=== PATIENT | male | born 1960 | race Caucasian/White ===

== ENCOUNTER 2017-11-17 08:32 | Emergency (ER) | payer OTHER ==
[~2017-11-17] VITALS: Ht 172.7 cm; Wt 122.5 kg
[~2017-11-17 08:32] MED LIST: ACET500 PO; ALBU90OI6 INH; ASCO500 PO; AZIT250 PO; Advair Hfa 230-12 GM; B Complex #11 EACH PO; BENZ1; BENZ1 PO; Benztropine Mesy1 MG; CLIN300 PO; CLON.5; CLON.5 PO; CLON1 PO; DIPH50 PO; DIVA250EC PO; DIVA250ER PO; DIVA500EC PO; DIVA500ER PO; DOCU100 PO; DONE10 PO; Desyrel50 MG PO; ENAL2.5 PO; FISH OIL + D31 EACH PO; FURO40; FURO40 PO; GUAI600T33 PO; HALO5; HALO5 PO; Haldol 5 mg Tab5 MG GT; IBUP600 PO; IBUP800; IBUP800 PO; LAVAP17G PO; LISI5; LISI5 PO; LITH300CA; LORPSEER24; MAGOXI400 PO; METF500; METF500 PO; MULVITMIND PO; MULVITMINF PO; NAPR500 PO; OLAN5 PO; OXYB5 PO; PERP8 PO; POLY17UD PO; POTCHL10ER; POTCHL10ER PO; PSYL5.85P PO; Prinivil5 MG PO; RISP1 PO; RISP3 PO; RISP4 PO; SENN187 PO; SERT100; SILD50TA; SIMV40 PO; SIMV80 PO; TOCO1000 PO; TOPI100; TRAZ100 PO; TRAZ50; VITAMIN D32000 UNI1 PO; VITS; WARF1 PO; WARF10 PO; WARF4 PO
[2017-11-17] MEDS ORDERED: GLIM2 PO (08:57)
[2017-11-17] MEDS ORDERED: BUDE6HFA INH (08:58)
[2017-11-17] MEDS ORDERED: CHLO25A PO (08:59)
[2017-11-17] MEDS ORDERED: PALI6TA (09:00)
[2017-11-17] MEDS ORDERED: Augmentin 875-1 EACH PO (09:05)
== END 2017-11-17 09:42 | disposition home or self-care (01) ==
LOC: ER 08:32
DX: S01.451A Open bite of right cheek and temporomandibular area, initial encounter (principal); W54.0XXA Bitten by dog, initial encounter; Z88.2 Allergy status to sulfonamides; Z88.8 Allergy status to other drugs, medicaments and biological substances; Z79.899 Other long term (current) drug therapy; Z79.84 Long term (current) use of oral hypoglycemic drugs; I50.9 Heart failure, unspecified; Z87.01 Personal history of pneumonia (recurrent); E11.9 Type 2 diabetes mellitus without complications; F25.9 Schizoaffective disorder, unspecified; F03.90 Unspecified dementia, unspecified severity, without behavioral disturbance, psychotic disturbance, mood disturbance, and anxiety; F17.200 Nicotine dependence, unspecified, uncomplicated
CPT/HCPCS: 90714; 96372; 99283

== ENCOUNTER 2020-12-22 11:56 | Inpatient (IN) | payer OTHER ==
[~2020-12-22] VITALS: Ht 182.9 cm; Wt 155.0 kg
[~2020-12-22 11:56] MED LIST changes: +Augmentin 875-1 EACH PO; -B Complex #11 EACH PO; -Benztropine Mesy1 MG; +Benztropine Mesy1 MG PO; +CHLO25A PO; -FISH OIL + D31 EACH PO; +FISH OIL 1,2001 EAC1 PO; +GLIM2 PO; -LORPSEER24; +PALI6TA; +SYMBICORT 160-4.6 GM INH; +Vitamin B Comple1 EA PO; +[UNRECOGNIZED DRUG - OTHER] PO
[2020-12-22 12:27] LABS: PCO2 Arterial 37.6 mmHg (35-45); PO2 Arterial 163 mmHg (80-100); pH Blood Arterial 7.42 (7.35-7.45)
[2020-12-22 12:59] LABS: BASOPHILS ABSOLUTE AUTO 0.01 K/mm3 (0.00-0.23); BASOPHILS PERCENT AUTO 0 % (0-2); EOSINOPHILS ABSOLUTE AUTO 0.01 K/mm3 (0.00-0.68); EOSINOPHILS PERCENT AUTO 0 % (0-6); Hematocrit 39.9 % (37.0-53.0); Hemoglobin 12.7 g/dL (13.5-17.5); IMMATURE GRAN ABSOLUTE AUTO 0.04 K/mm3 (0.00-0.10); IMMATURE GRAN PERCENT AUTO 1 % (0-1); LYMPHOCYTES ABSOLUTE AUTO 0.48 K/mm3 (0.84-5.20); LYMPHOCYTES PERCENT AUTO 7 % (21-46); MONOCYTES ABSOLUTE AUTO 0.39 K/mm3 (0.16-1.47); MONOCYTES PERCENT AUTO 6 % (4-13); Mean Corpuscular HGB 28.5 pg (26.0-34.0); Mean Corpuscular HGB Conc 31.8 g/dL (31.5-36.5); Mean Corpuscular Volume 90 fL (80-100); NEUTROPHILS ABSOLUTE AUTO 5.71 K/mm3 (1.96-9.15); NEUTROPHILS PERCENT AUTO 86 % (41-73); RDW Coefficient Variation 15.4 % (11.7-14.2); RDW Standard Deviation 51.2 fL (35.1-46.3); Red Blood Cell Count 4.46 M/mm3 (4.30-5.90); White Blood Cell Count 6.64 K/mm3 (4.00-11.30)
[2020-12-22 13:03] LABS: Alanine Aminotransfer (ALT/SGP 50 U/L (12-78); Albumin, Blood 2.4 g/dL (3.4-5.0); Albumin/Globulin Ratio 0.5 (0.8-1.8); Alk Phos 55 U/L (50-136); Anion Gap 6 mmol/L (6-16); Aspartate Aminotrans (AST/SGOT 68 U/L (12-37); Bilirubin, Total 0.4 mg/dL (0.1-1.0); Blood Urea Nitrogen 25 mg/dL (8-24); Bun/Creatinine Ratio 22.7 (12.0-20.0); CO2, Blood 27 mmol/L (21-32); Calcium, Blood 8.2 mg/dL (8.5-10.1); Chloride, Blood 102 mmol/L (98-108); Globulin, Blood 4.4 g/dL (2.2-4.0); Glomerular Filtration Rate >60 (60-); Glucose, Blood 152 mg/dL (70-99); Magnesium, Blood 2.3 mg/dL (1.6-2.4); Potassium, Blood 4.4 mmol/L (3.5-5.5); Sodium, Blood 135 mmol/L (136-145); Total Protein, Blood 6.8 g/dL (6.4-8.2); Troponin I <0.015 ng/mL (0.000-0.040)
[2020-12-22 13:47] LABS: Mean Platelet Volume 9.1 fL (9.1-12.4); Platelet Count 176 K/mm3 (150-400)
[2020-12-22 17:07] LABS: International Normalized Ratio 1.11; Prothrombin Time Results 11.9 Sec (9.7-11.5)
--- NOTE | 2020-12-22 20:10 | NUR ---
THIS RN CONTACTED PT MOTHER, JUAN AUSTIN AT 1999. I GAVE UPDATE ON THE PT'S CONDITION. PT'S MOTHER STATED THAT SHE IS THE COURT APPOINTED DECISION MAKER WHEN THIS RN ASKED IF CODE STATUS HAS LIDA DISCUSSED IN THE PAST. PT'S MOTHER STATED THAT SHE WOULD LIKE HER SON TO BE FULL CODE STATUS. STATUS UPDATE WAS WITNESSED WITH GOLDEN CROCKETT. PT'S MOTHER ALSO STATED THAT THE COURT DOCUMENTS SHOULD BE ON FILE AND IF NOT ON FILE, SHE WOULD DELIVER THEM TO THE HOSPITAL.
--- NOTE | 2020-12-22 20:15 | NUR ---
SHIFT SUMMARY PT ARRIVED TO UNIT AT 1549 VIA HOSPITAL BED AND ON BIPAP AT 60%. PT IS A/O X2 AND IS OBTUNDED. ORAL MEDICATIONS HELD DUE TO PT NOT ABLE TO STAY AWAKE WHEN ROUSED. VSS SINCE ARRIVAL TO UNIT WITH O2 SATS > 96 ON BIPAP AT 60%.
[2020-12-22 23:21] LABS: Source, Urine Clean Catch
[2020-12-22 23:24] LABS: Bilirubin, Urine Neg (Neg); Blood, Urine Neg (Neg); Glucose Qualitative, Urine Neg (Neg); Ketones, Urine Neg (Neg); Leukocyte Esterase, Urine Neg (Neg); Nitrite, Urine Neg (Neg); Protein, Urine 1+ (Neg); Specific Gravity, Urine 1.015 (1.003-1.022); Urobilinogen, Urine NORM (Normal)
[2020-12-22 23:27] LABS: Appearance, Urine Clear (Clear); Color, Urine Yellow (P-Yellow)
[2020-12-23 03:50] LABS: BASOPHILS ABSOLUTE AUTO 0.01 K/mm3 (0.00-0.23); BASOPHILS PERCENT AUTO 0 % (0-2); EOSINOPHILS PERCENT AUTO 0 % (0-6); Hematocrit 36.8 % (37.0-53.0); Hemoglobin 11.6 g/dL (13.5-17.5); IMMATURE GRAN ABSOLUTE AUTO 0.04 K/mm3 (0.00-0.10); IMMATURE GRAN PERCENT AUTO 1 % (0-1); LYMPHOCYTES ABSOLUTE AUTO 0.55 K/mm3 (0.84-5.20); LYMPHOCYTES PERCENT AUTO 8 % (21-46); MONOCYTES ABSOLUTE AUTO 0.32 K/mm3 (0.16-1.47); MONOCYTES PERCENT AUTO 4 % (4-13); Mean Corpuscular HGB 28.4 pg (26.0-34.0); Mean Corpuscular HGB Conc 31.5 g/dL (31.5-36.5); Mean Corpuscular Volume 90 fL (80-100); Mean Platelet Volume 9.3 fL (9.1-12.4); NEUTROPHILS ABSOLUTE AUTO 6.31 K/mm3 (1.96-9.15); NEUTROPHILS PERCENT AUTO 87 % (41-73); Platelet Count 144 K/mm3 (150-400); RDW Coefficient Variation 15.4 % (11.7-14.2); RDW Standard Deviation 51.2 fL (35.1-46.3); Red Blood Cell Count 4.09 M/mm3 (4.30-5.90); White Blood Cell Count 7.23 K/mm3 (4.00-11.30)
[2020-12-23 04:08] LABS: Alanine Aminotransfer (ALT/SGP 47 U/L (12-78); Albumin, Blood 1.9 g/dL (3.4-5.0); Albumin/Globulin Ratio 0.5 (0.8-1.8); Alk Phos 48 U/L (50-136); Anion Gap 7 mmol/L (6-16); Aspartate Aminotrans (AST/SGOT 60 U/L (12-37); Bilirubin, Total 0.3 mg/dL (0.1-1.0); Blood Urea Nitrogen 23 mg/dL (8-24); Bun/Creatinine Ratio 27.6 (12.0-20.0); CO2, Blood 27 mmol/L (21-32); Calcium, Blood 8.5 mg/dL (8.5-10.1); Chloride, Blood 103 mmol/L (98-108); Creatinine, Blood 0.83 mg/dL (0.60-1.20); Globulin, Blood 4.2 g/dL (2.2-4.0); Glomerular Filtration Rate >60 (60-); Glucose, Blood 228 mg/dL (70-99); Magnesium, Blood 2.6 mg/dL (1.6-2.4); Potassium, Blood 4.7 mmol/L (3.5-5.5); Sodium, Blood 137 mmol/L (136-145); Total Protein, Blood 6.1 g/dL (6.4-8.2); Troponin I <0.015 ng/mL (0.000-0.040)
--- NOTE | 2020-12-23 05:56 | NUR ---
HAND MOUNTER SUMMARY PT IS AXO X3. PT WAS VERY OBTUNDED AT THE START OF SHIFT UNABLE TO STAY AWAKE LONG ENOUGH TO TAKE ANY PO MEDICATIONS. PT'S MENTATION HAS IMPROVED THROUGHOUT THE SHIFT. PTHAS MAINTAINED O2 SATS >92% ON BIPAP W 40% FIO2. PT WAS FREQUENTLY INCONTINENT SO ORDER FOR A ARMANDO CATHETER WAS RECIEVED AND PLACED, 1L URINE IMMEDIATELY DRAINED FROM CATHETER AFTER PLACEMENT. PT HAS TUNNELING STAGE 3 PRESSURE ULCER ON COCCYX SO MEPILEX WAS PLACED AND PIC IS IN THE CHART. PT HAS SKIN BREAKDOWN UNDER SKIN FOLDS SO BARRIER CREAM WAS APPLIED AND PICS IN THE CHART. HEPARIN GTT RUNNING ALL SHIFT UNINTERUPTED. WILL REPORT TO ONCOMING RN.
--- NOTE | 2020-12-23 18:40 | NUR ---
shift summary: ASSUMED CARE OF PATIENT ON 12/23/2020 AT 0710. PATIENT WAS SLEEPY, BUT WAS ABLE TO STAY AWAKE ANSWER QUESTIONS, WAS ON BIPAP AT 16/140 70L AT 40%, PATIENT WAS ABLE TO TOLERATE AIRVO FOR BMEALS AND TOLERATED FOR BREAKS, LONGEST BREAK WAS ROUGHLY 50 MINUTES WHERE SAT'S WERE >92 SPO2. PATIENT DENIES CHEST PAIN, DENIED TO BE TURNED DUE TO ALREADY BEING COMFORTABLE, WAS ABLE TO TO DO SLIGHT TURNS Q2 WITH PILLOWS, AND AT THE END OF SHIFT COMPLETELY TURN AND VISUAL COVERED COCCYX. AND CLEAN PERIAREA. HEPARIN WAS INCREASED TO 17U/KG/HR BE THE END OF SHIFT STARTING AT 15 U/KG/HR. ANOTHER IV ESTABLISHED FOR REMDESIVIR WAS PLACED BY BERNA CROCKETT IN THE RIGHT FOREARM. FLUSHES AND INFUSES WELL PATIENT DENIES DISCOMFORT WITH IV. PATIENT DOES HAVE EPISODES OF BILATERAL UPPER EXTREMITY TREMORS. WORSE WITH FOCUSING FOR EATING. DENIES WORSENING. NO EDEMA ON PRESENTATION. ARMANDO FLOWING WELL TO GRAVITY, LARGE INPUT OF FLUIDS WITH A LARGE OUTPUT OF FLUIDS WELL. BED ALARM ON. USES CALL LIGHT APPROPRIATELY.
--- NOTE | 2020-12-23 18:55 | NUR ---
SHIFT SUMMARY: PATIENT ARRIVED TO PCU AT ~1430 FROM ICU2, SP ANGIOGRAM VIA R RADIAL. SLIGHT BRUISING AT SIGHT. PATIENT IS ON RA, DENIES CHEST OR TENDERNESS WITH REST, DOES ENDORSE CHSET TENDERNESS AT A 3/10 WITH DEEP BREATH AND CERTAIN MOVEMENTS. DR. DANIELSON CONSULTED FROM DR. ANGELES AFTER THIS LOG SORTING SUPERVISOR CALLED DUE TO ELEVEATED TEMP AND WBC. URINALYSIS TYLENOL AND INCENTIVE CECILIA, CBC ORDERED BY PROVIDER. PATIENT USES CALL LIGHT APPROPRIATELY. BOTH IV FLUSH WELL. ABLE TO REPOSITION.
[2020-12-24 04:24] LABS: BASOPHILS ABSOLUTE AUTO 0.02 K/mm3 (0.00-0.23); BASOPHILS PERCENT AUTO 0 % (0-2); EOSINOPHILS PERCENT AUTO 0 % (0-6); Hematocrit 34.8 % (37.0-53.0); Hemoglobin 11.1 g/dL (13.5-17.5); Mean Corpuscular HGB 28.2 pg (26.0-34.0); Mean Corpuscular HGB Conc 31.9 g/dL (31.5-36.5); Mean Corpuscular Volume 88 fL (80-100); Mean Platelet Volume 9.6 fL (9.1-12.4); NRBC ABSOLUTE 0.02 K/mm3 (0.00-0.02); NRBC Auto 0.2 /100 WBC (0.0-0.2); Platelet Count 187 K/mm3 (150-400); RDW Standard Deviation 48.6 fL (35.1-46.3); Red Blood Cell Count 3.94 M/mm3 (4.30-5.90); White Blood Cell Count 8.19 K/mm3 (4.00-11.30)
[2020-12-24 04:26] LABS: IMMATURE GRAN PERCENT AUTO 1 % (0-1); LYMPHOCYTES ABSOLUTE AUTO 0.62 K/mm3 (0.84-5.20); LYMPHOCYTES PERCENT AUTO 8 % (21-46); MONOCYTES ABSOLUTE AUTO 0.46 K/mm3 (0.16-1.47); MONOCYTES PERCENT AUTO 6 % (4-13); NEUTROPHILS ABSOLUTE AUTO 6.99 K/mm3 (1.96-9.15); NEUTROPHILS PERCENT AUTO 85 % (41-73)
[2020-12-24 04:39] LABS: International Normalized Ratio 1.11; Prothrombin Time Results 11.9 Sec (9.7-11.5)
[2020-12-24 04:48] LABS: Alanine Aminotransfer (ALT/SGP 76 U/L (12-78); Albumin, Blood 1.8 g/dL (3.4-5.0); Albumin/Globulin Ratio 0.4 (0.8-1.8); Alk Phos 50 U/L (50-136); Anion Gap 5 mmol/L (6-16); Aspartate Aminotrans (AST/SGOT 53 U/L (12-37); Bilirubin, Total 0.2 mg/dL (0.1-1.0); Blood Urea Nitrogen 18 mg/dL (8-24); Bun/Creatinine Ratio 28.1 (12.0-20.0); CO2, Blood 27 mmol/L (21-32); Chloride, Blood 103 mmol/L (98-108); Creatinine, Blood 0.64 mg/dL (0.60-1.20); Globulin, Blood 4.2 g/dL (2.2-4.0); Glomerular Filtration Rate >60 (60-); Glucose, Blood 284 mg/dL (70-99); Magnesium, Blood 2.7 mg/dL (1.6-2.4); Potassium, Blood 5.1 mmol/L (3.5-5.5); Sodium, Blood 135 mmol/L (136-145); Troponin I <0.015 ng/mL (0.000-0.040)
--- NOTE | 2020-12-24 18:38 | NUR ---
SHIFT SUMMARY PT ALERT AND ORIENTED X 4 THROUGHOUT SHIFT. SBP REMAINED IN 150'S; 10 MG HYDRALAZINE GIVEN AT 1530 PER EMAR ORDERS. UPON REASSESSMENT SBP REMAINED IN 150'S. WILL COMMUNICATE TO ONCOMING NURSE OF BP WELL Q6 HYDRALAZINE ORDER FOR SBP GREATER THAN 150. PATIENT IS NOW ON 8 L O2 VIA NASAL CANNULA AND SPO2 REMAINS AT 98%. PATIENT DENIED NAUSEA/VOMMITING DURING SHIFT. PATIENT DENIED CHEST PAIN OR PRESSURE. POWERGLIDE IN RIGHT ARM IS INFUSING HEPARIN DRIP PER ORDERS. PATIENT COMPLAINED OF INABILITY TO HAVE A BM SINCE ADMITTANCE. THIS NURSE GAVE SUPPOSITORY PER ORDER AND PATIENT GOT UP TO BEDSIDE COMMODE A SBA. NO BM AT THIS TIME. MEPILEX DRESSING ON COCCYX WOUND IS DRY AND INTACT. ARMANDO CATHETER IS PATENT AND DRAINING APPROPRIATELY. NO OTHER ACUTE CHANGES NOTED. WILL CONTINUE TO MONITOR.
[2020-12-25 03:31] LABS: BASOPHILS ABSOLUTE AUTO 0.04 K/mm3 (0.00-0.23); BASOPHILS PERCENT AUTO 1 % (0-2); EOSINOPHILS PERCENT AUTO 0 % (0-6); Hematocrit 35.3 % (37.0-53.0); Hemoglobin 11.4 g/dL (13.5-17.5); Mean Corpuscular HGB 28.7 pg (26.0-34.0); Mean Corpuscular HGB Conc 32.3 g/dL (31.5-36.5); Mean Corpuscular Volume 89 fL (80-100); Mean Platelet Volume 9.5 fL (9.1-12.4); NRBC ABSOLUTE 0.04 K/mm3 (0.00-0.02); NRBC Auto 0.5 /100 WBC (0.0-0.2); Platelet Count 242 K/mm3 (150-400); RDW Standard Deviation 49.1 fL (35.1-46.3); Red Blood Cell Count 3.97 M/mm3 (4.30-5.90); White Blood Cell Count 7.66 K/mm3 (4.00-11.30)
[2020-12-25 03:32] LABS: IMMATURE GRAN ABSOLUTE AUTO 0.29 K/mm3 (0.00-0.10); IMMATURE GRAN PERCENT AUTO 4 % (0-1); LYMPHOCYTES ABSOLUTE AUTO 0.98 K/mm3 (0.84-5.20); LYMPHOCYTES PERCENT AUTO 13 % (21-46); MONOCYTES ABSOLUTE AUTO 0.55 K/mm3 (0.16-1.47); MONOCYTES PERCENT AUTO 7 % (4-13); NEUTROPHILS PERCENT AUTO 76 % (41-73)
[2020-12-25 03:46] LABS: International Normalized Ratio 1.15; Prothrombin Time Results 12.3 Sec (9.7-11.5)
[2020-12-25 03:50] LABS: Anion Gap 3 mmol/L (6-16); Blood Urea Nitrogen 22 mg/dL (8-24); Bun/Creatinine Ratio 32.7 (12.0-20.0); CO2, Blood 30 mmol/L (21-32); Calcium, Blood 8.8 mg/dL (8.5-10.1); Chloride, Blood 103 mmol/L (98-108); Creatinine, Blood 0.67 mg/dL (0.60-1.20); Glomerular Filtration Rate >60 (60-); Glucose, Blood 408 mg/dL (70-99); Magnesium, Blood 2.3 mg/dL (1.6-2.4); Potassium, Blood 5.6 mmol/L (3.5-5.5); Sodium, Blood 136 mmol/L (136-145); Troponin I <0.015 ng/mL (0.000-0.040)
--- NOTE | 2020-12-25 06:03 | NUR ---
SUMMARY NO ACUTE CHANGES NOTED THROUGH THE NIGHT. PT IS CURRENTLY ON 6 L 02 VIA NC. SPO2 >93%. PT WORE A CPAP TO BED & TOLERATED WITH NO PROBLEMS. TOLERATING PO INTAKE. Q2 TURNS PROVIDED. DB&C ENC. HEP GTT INFUSING PER EMAR @ 19.5 UNITS/KG. CALL LIGHT IN REACH, WCTM & REPORT TO DAY RN
--- NOTE | 2020-12-25 09:35 | NUR ---
SALINE LOCKED. HEPARIN DRIP STOPPED PER PHARMACY.
--- NOTE | 2020-12-25 13:43 | NUR ---
UPDATE PHYSICIAN NOTIFIED T/O SHIFT OF PT'S HIGH CBG LEVELS. ORDERS FOR HUMULIN R, SEE EMAR. ORDERS TO RE-CHECK CBG IN 1 HR
[2020-12-25 14:39] LABS: Alanine Aminotransfer (ALT/SGP 71 U/L (12-78); Albumin, Blood 1.9 g/dL (3.4-5.0); Albumin/Globulin Ratio 0.4 (0.8-1.8); Alk Phos 61 U/L (50-136); Anion Gap 6 mmol/L (6-16); Aspartate Aminotrans (AST/SGOT 33 U/L (12-37); Bilirubin, Total 0.4 mg/dL (0.1-1.0); Blood Urea Nitrogen 22 mg/dL (8-24); Bun/Creatinine Ratio 30.5 (12.0-20.0); CO2, Blood 28 mmol/L (21-32); Calcium, Blood 8.5 mg/dL (8.5-10.1); Chloride, Blood 100 mmol/L (98-108); Creatinine, Blood 0.72 mg/dL (0.60-1.20); Globulin, Blood 4.5 g/dL (2.2-4.0); Glomerular Filtration Rate >60 (60-); Glucose, Blood 431 mg/dL (70-99); Potassium, Blood 5.4 mmol/L (3.5-5.5); Sodium, Blood 134 mmol/L (136-145); Total Protein, Blood 6.4 g/dL (6.4-8.2)
--- NOTE | 2020-12-25 15:12 | NUR ---
UPDATE PHYSICIAN NOTIFIED OF PT'S HIGH CBG. ORDERS FOR 10 UNITS OF HUMULIN R ORDERED.
--- NOTE | 2020-12-25 16:37 | NUR ---
SHIFT SUMMARY PT ALERT AND ORIENTED. SLOW TO RESPOND. PT SBA TO COMMODE. OXYGEN SATURATION MAINTAINED ABOVE 92% ON 9 L OF OXYGEN VIA NC. HR STABLE. NO LONGER ON TELEMETRY PER MD ORDER. PT ABLE TO TURN SELF AND ASSIST IN TURNS IN BED. NO CP OR PRESSURE REPORTED. PT HAS HIGH CBG READINGS T/O SHIFT. PHYSICIAN AWARE AND ORDERS PROVIDED. WILL RE-CHECK CBG Q 1 HR WHILE ABOVE 350 AND INFORM PHYSICIAN. PT ASSISTED IN CALLING MOTHER AT BEDSIDE. WILL CONT TO MONITOR UNTIL REPORT GIVEN TO NIGHTSHIFT RN
[2020-12-26 05:10] LABS: BASOPHILS ABSOLUTE AUTO 0.04 K/mm3 (0.00-0.23); BASOPHILS PERCENT AUTO 1 % (0-2); EOSINOPHILS PERCENT AUTO 0 % (0-6); Hematocrit 37.1 % (37.0-53.0); Hemoglobin 11.9 g/dL (13.5-17.5); Mean Corpuscular HGB 28.6 pg (26.0-34.0); Mean Corpuscular HGB Conc 32.1 g/dL (31.5-36.5); Mean Corpuscular Volume 89 fL (80-100); Mean Platelet Volume 9.6 fL (9.1-12.4); NRBC ABSOLUTE 0.03 K/mm3 (0.00-0.02); NRBC Auto 0.4 /100 WBC (0.0-0.2); Platelet Count 266 K/mm3 (150-400); RDW Coefficient Variation 14.7 % (11.7-14.2); RDW Standard Deviation 48.3 fL (35.1-46.3); Red Blood Cell Count 4.16 M/mm3 (4.30-5.90); White Blood Cell Count 8.56 K/mm3 (4.00-11.30)
[2020-12-26 05:19] LABS: IMMATURE GRAN ABSOLUTE AUTO 0.42 K/mm3 (0.00-0.10); IMMATURE GRAN PERCENT AUTO 5 % (0-1); LYMPHOCYTES ABSOLUTE AUTO 1.18 K/mm3 (0.84-5.20); LYMPHOCYTES PERCENT AUTO 14 % (21-46); MONOCYTES ABSOLUTE AUTO 0.69 K/mm3 (0.16-1.47); MONOCYTES PERCENT AUTO 8 % (4-13); NEUTROPHILS ABSOLUTE AUTO 6.23 K/mm3 (1.96-9.15); NEUTROPHILS PERCENT AUTO 73 % (41-73)
[2020-12-26 05:27] LABS: International Normalized Ratio 1.27; Prothrombin Time Results 13.5 Sec (9.7-11.5)
[2020-12-26 06:00] LABS: Alanine Aminotransfer (ALT/SGP 67 U/L (12-78); Albumin/Globulin Ratio 0.4 (0.8-1.8); Alk Phos 54 U/L (50-136); Anion Gap 5 mmol/L (6-16); Aspartate Aminotrans (AST/SGOT 30 U/L (12-37); Bilirubin, Total 0.2 mg/dL (0.1-1.0); Blood Urea Nitrogen 23 mg/dL (8-24); Bun/Creatinine Ratio 28.1 (12.0-20.0); CO2, Blood 30 mmol/L (21-32); Calcium, Blood 9.2 mg/dL (8.5-10.1); Chloride, Blood 102 mmol/L (98-108); Creatinine, Blood 0.82 mg/dL (0.60-1.20); Globulin, Blood 4.6 g/dL (2.2-4.0); Glomerular Filtration Rate >60 (60-); Glucose, Blood 326 mg/dL (70-99); Magnesium, Blood 2.2 mg/dL (1.6-2.4); Potassium, Blood 5.1 mmol/L (3.5-5.5); Sodium, Blood 137 mmol/L (136-145); Total Protein, Blood 6.6 g/dL (6.4-8.2); Troponin I <0.015 ng/mL (0.000-0.040)
--- NOTE | 2020-12-26 06:00 | NUR ---
SUMMARY PT IS CURRENTLY ON 10 L O2 VIA NC, SPO2 >92%. PT TOLERATED CPAP THROUGH THE NIGHT WITH NO PROBLEMS. HE IS AWAKE & DRINKING COFFEE THIS AM. DB&C EDUCATION PROVIDED. PT IS COUGHING UP CLEAR SPUTUM. Q2 TURNS PROVIDED. ARMANDO REMAINS PATENT, CLEAR YELLOW URINE NOTED. CALL LIGHT IN REACH
[2020-12-26 06:35] LABS: BASOPHILS PERCENT MAN 0 % (0-2); EOSINOPHILS PERCENT MAN 0 % (0-6); LYMPHOCYTES PERCENT MAN 11 % (21-46)
[2020-12-26 06:38] LABS: BAND PERCENT MAN 1 % (0-8); MONOCYTES ABSOLUTE MAN 0.51 K/mm3 (0.16-1.47); MONOCYTES PERCENT MAN 6 % (4-13); MYELOCYTE ABSOLUTE MAN 0.17 K/mm3 (0.00-0.00); MYELOCYTE PERCENT MAN 2 % (0-0); NEUTROPHILS ABSOLUTE MAN 6.93 K/mm3 (1.96-9.15); SEG NEUTROPHILS PERCENT MAN 80 % (41-73); TOTAL CELLS COUNTED 100
[2020-12-26 06:40] LABS: LYMPHOCYTES ABSOLUTE MAN 0.94 K/mm3 (0.84-5.20)
--- NOTE | 2020-12-26 12:26 | NUR ---
PT WITH COVERS OVER HEAD, UNSURE OF WHERE HE IS. CONFUSED CONVERSATION. PT REORIENTED TO SURROUNDINGS THEN PT VERBALIZES HE IS AWARE OF BEING IN HOSPITAL AND HOPES TO GO HOME TODAY OR TOMORROW- ASKS WHEN THE DR WILL SEE HIM. KLONOPIN GIVEN EARLY AM DOSE HAD BEEN HELD
--- NOTE | 2020-12-26 15:53 | NUR ---
to 345 per bed. report c ken nuno receiving charlie magallon
--- NOTE | 2020-12-26 19:49 | NUR ---
SHIFT SUMMARY: PT XFR FROM PCU-07 THIS SHIFT. PT A&O; CALM AND COOPERATIVE WITH CARE. PT REMAINS ON O2 @ 10L VIA OXYMIZER. ARMANDO IN PLACE; PATENT AND DRAINING. HOME O2 EVAL THIS SHIFT REVEALS O2 NEEDS AT 10L AT ALL TIMES. POSSIBLE DISCHARGE HOME TO [facility] IN NEXT 48 HOURS. REPORT GIVEN TO ONCLONNIE RN.
[2020-12-27 05:28] LABS: BASOPHILS ABSOLUTE AUTO 0.07 K/mm3 (0.00-0.23); BASOPHILS PERCENT AUTO 1 % (0-2); EOSINOPHILS PERCENT AUTO 0 % (0-6); Hematocrit 39.8 % (37.0-53.0); Mean Corpuscular HGB 28.6 pg (26.0-34.0); Mean Corpuscular HGB Conc 32.7 g/dL (31.5-36.5); Mean Corpuscular Volume 88 fL (80-100); Mean Platelet Volume 9.3 fL (9.1-12.4); NRBC ABSOLUTE 0.24 K/mm3 (0.00-0.02); NRBC Auto 2.9 /100 WBC (0.0-0.2); Platelet Count 282 K/mm3 (150-400); RDW Coefficient Variation 14.9 % (11.7-14.2); RDW Standard Deviation 47.7 fL (35.1-46.3); Red Blood Cell Count 4.55 M/mm3 (4.30-5.90); White Blood Cell Count 8.32 K/mm3 (4.00-11.30)
[2020-12-27 05:37] LABS: IMMATURE GRAN ABSOLUTE AUTO 0.72 K/mm3 (0.00-0.10); IMMATURE GRAN PERCENT AUTO 9 % (0-1); LYMPHOCYTES ABSOLUTE AUTO 1.19 K/mm3 (0.84-5.20); LYMPHOCYTES PERCENT AUTO 14 % (21-46); MONOCYTES ABSOLUTE AUTO 0.57 K/mm3 (0.16-1.47); MONOCYTES PERCENT AUTO 7 % (4-13); NEUTROPHILS ABSOLUTE AUTO 5.77 K/mm3 (1.96-9.15); NEUTROPHILS PERCENT AUTO 69 % (41-73)
[2020-12-27 05:45] LABS: International Normalized Ratio 1.31; Prothrombin Time Results 13.9 Sec (9.7-11.5)
[2020-12-27 06:02] LABS: Anion Gap 3 mmol/L (6-16); Blood Urea Nitrogen 24 mg/dL (8-24); Bun/Creatinine Ratio 32.9 (12.0-20.0); CO2, Blood 32 mmol/L (21-32); Calcium, Blood 9.6 mg/dL (8.5-10.1); Chloride, Blood 102 mmol/L (98-108); Creatinine, Blood 0.73 mg/dL (0.60-1.20); Glomerular Filtration Rate >60 (60-); Glucose, Blood 245 mg/dL (70-99); Potassium, Blood 5.5 mmol/L (3.5-5.5); Sodium, Blood 137 mmol/L (136-145)
[2020-12-27 06:06] LABS: BASOPHILS PERCENT MAN 0 % (0-2); EOSINOPHILS PERCENT MAN 0 % (0-6); LYMPHOCYTES ABSOLUTE MAN 0.83 K/mm3 (0.84-5.20); LYMPHOCYTES PERCENT MAN 10 % (21-46); MONOCYTES ABSOLUTE MAN 0.49 K/mm3 (0.16-1.47); MONOCYTES PERCENT MAN 6 % (4-13); MYELOCYTE ABSOLUTE MAN 0.83 K/mm3 (0.00-0.00); MYELOCYTE PERCENT MAN 10 % (0-0); NEUTROPHILS ABSOLUTE MAN 6.15 K/mm3 (1.96-9.15); SEG NEUTROPHILS PERCENT MAN 74 % (41-73); TOTAL CELLS COUNTED 100
--- NOTE | 2020-12-27 07:40 | NUR ---
SHIFT SUMMARY PT REMAINS ON 10L VIA HI DEEPAK NASAL CANNULA. SLEPT WITH CPAP ON LAST NIGHT. NO C/O PAIN OR DISCOMFORT. ARMANDO IN PLACE AND DRAINING. POWERGLIDE IV IN RIGHT AC. VSS. NO ACUTE CHANGES.
[2020-12-27] MEDS ORDERED: ACET325 PO (11:34)
[2020-12-27] MEDS ORDERED: INSULANPEN SC (11:35)
[2020-12-27] MEDS ORDERED: HUMULIN R100 UNIT/1 SC ×2 (11:38→11:40)
[2020-12-27] MEDS ORDERED: XARELTO15 MG PO (11:41)
[2020-12-27] MEDS ORDERED: DECADRON6 M2 PO (11:41)
[2020-12-27] MEDS ORDERED: SENNA LAXATIVE8.6 MG PO (11:41)
== END 2020-12-27 15:41 | disposition home or self-care (01) | DRG 177 ==
LOC: ER 11:56 → PCU 13:35 → MEDS 12-26 16:20 → ENPENDDIS 12-27 10:27 → MEDS 12-27 15:41
PROVIDERS: Internal Medicine; Pharmacist; Student in an Organized Health Care Education/Training Program; ADMIT Family Medicine
PROC: 8E0ZXY6 Isolation (ICD-10-PCS; principal; 2020-12-22)
PROC: 3E0333Z Introduction of Anti-inflammatory into Peripheral Vein, Percutaneous Approach (ICD-10-PCS; 2020-12-22)
PROC: XW033E5 Introduction of Remdesivir Anti-infective into Peripheral Vein, Percutaneous Approach, New Technology Group 5 (ICD-10-PCS; 2020-12-22)
PROC: 5A09457 Assistance with Respiratory Ventilation, 24-96 Consecutive Hours, Continuous Positive Airway Pressure (ICD-10-PCS; 2020-12-22)
DX: U07.1 COVID-19 (principal); J12.82 Pneumonia due to coronavirus disease 2019; J96.01 Acute respiratory failure with hypoxia; I26.99 Other pulmonary embolism without acute cor pulmonale; Z68.44 Body mass index [BMI] 60.0-69.9, adult; Z66 Do not resuscitate; E78.5 Hyperlipidemia, unspecified; I11.0 Hypertensive heart disease with heart failure; R79.89 Other specified abnormal findings of blood chemistry; I50.9 Heart failure, unspecified; E86.0 Dehydration; R94.31 Abnormal electrocardiogram [ECG] [EKG]; F25.9 Schizoaffective disorder, unspecified; E66.01 Morbid (severe) obesity due to excess calories; M54.9 Dorsalgia, unspecified; J44.9 Chronic obstructive pulmonary disease, unspecified; G40.909 Epilepsy, unspecified, not intractable, without status epilepticus; F03.90 Unspecified dementia, unspecified severity, without behavioral disturbance, psychotic disturbance, mood disturbance, and anxiety; G89.29 Other chronic pain; G47.33 Obstructive sleep apnea (adult) (pediatric); F17.210 Nicotine dependence, cigarettes, uncomplicated; Z88.2 Allergy status to sulfonamides; Z88.8 Allergy status to other drugs, medicaments and biological substances; Z86.711 Personal history of pulmonary embolism; Z79.899 Other long term (current) drug therapy; Z79.84 Long term (current) use of oral hypoglycemic drugs
CPT/HCPCS: 36415; 36600; 71260; 80048; 80053; 82803; 82947; 83036; 83605; 83735; 83880; 84145; 84443; 84484; 85025; 85379; 85610; 85730; 86140; 87040; 93005; 93010; 94640; 94660; 94664; 94761; 94762; 96361; 96374; 99285-25; A9270; C1751; J0360; J1100; J1644; J1815; J2930; J7030; Q9967

== ENCOUNTER 2021-01-17 18:40 | Emergency (ER) | payer OTHER ==
[~2021-01-17] VITALS: Ht 172.7 cm; Wt 153.3 kg
[~2021-01-17 18:40] MED LIST changes: +ACET325 PO; +DECADRON6 M2 PO; +HUMULIN R100 UNIT/1 SC; +INSULANPEN SC; +SENNA LAXATIVE8.6 MG PO; +XARELTO15 MG PO
[2021-01-17 19:11] LABS: BASOPHILS ABSOLUTE AUTO 0.02 K/mm3 (0.00-0.23); BASOPHILS PERCENT AUTO 0 % (0-2); EOSINOPHILS PERCENT AUTO 2 % (0-6); Hematocrit 30.5 % (37.0-53.0); Hemoglobin 9.4 g/dL (13.5-17.5); IMMATURE GRAN ABSOLUTE AUTO 0.05 K/mm3 (0.00-0.10); IMMATURE GRAN PERCENT AUTO 1 % (0-1); LYMPHOCYTES PERCENT AUTO 27 % (21-46); MONOCYTES ABSOLUTE AUTO 0.61 K/mm3 (0.16-1.47); MONOCYTES PERCENT AUTO 13 % (4-13); Mean Corpuscular HGB 29.2 pg (26.0-34.0); Mean Corpuscular HGB Conc 30.8 g/dL (31.5-36.5); Mean Corpuscular Volume 95 fL (80-100); Mean Platelet Volume 8.5 fL (9.1-12.4); NEUTROPHILS PERCENT AUTO 57 % (41-73); NRBC ABSOLUTE 0.06 K/mm3 (0.00-0.02); NRBC Auto 1.3 /100 WBC (0.0-0.2); Platelet Count 334 K/mm3 (150-400); RDW Standard Deviation 57.2 fL (35.1-46.3); Red Blood Cell Count 3.22 M/mm3 (4.30-5.90); White Blood Cell Count 4.78 K/mm3 (4.00-11.30)
[2021-01-17 19:28] LABS: Alanine Aminotransfer (ALT/SGP 39 U/L (12-78); Albumin, Blood 2.3 g/dL (3.4-5.0); Albumin/Globulin Ratio 0.6 (0.8-1.8); Alk Phos 81 U/L (50-136); Anion Gap 4 mmol/L (6-16); Aspartate Aminotrans (AST/SGOT 52 U/L (12-37); Bilirubin, Total 0.2 mg/dL (0.1-1.0); Blood Urea Nitrogen 13 mg/dL (8-24); Bun/Creatinine Ratio 14.5 (12.0-20.0); CO2, Blood 32 mmol/L (21-32); Calcium, Blood 8.5 mg/dL (8.5-10.1); Chloride, Blood 100 mmol/L (98-108); Globulin, Blood 3.8 g/dL (2.2-4.0); Glomerular Filtration Rate >60 (60-); Glucose, Blood 102 mg/dL (70-99); Potassium, Blood 4.7 mmol/L (3.5-5.5); Sodium, Blood 136 mmol/L (136-145); Total Protein, Blood 6.1 g/dL (6.4-8.2)
== END 2021-01-17 21:00 | disposition home or self-care (01) ==
LOC: ER 18:40
PROVIDERS: Emergency Medicine
DX: R11.2 Nausea with vomiting, unspecified (principal); U07.1 COVID-19; G20 Parkinson's disease; I50.9 Heart failure, unspecified; E11.9 Type 2 diabetes mellitus without complications; G47.33 Obstructive sleep apnea (adult) (pediatric); F17.200 Nicotine dependence, unspecified, uncomplicated; Z88.2 Allergy status to sulfonamides; Z91.048 Other nonmedicinal substance allergy status; Z79.899 Other long term (current) drug therapy; Z79.4 Long term (current) use of insulin; Z86.711 Personal history of pulmonary embolism
CPT/HCPCS: 36415; 71045; 80053; 85025; 99285-25; A9270

== ENCOUNTER 2021-01-21 11:04 | Emergency (ER) | payer OTHER ==
[~2021-01-21] VITALS: Ht 172.7 cm; Wt 153.3 kg
[~2021-01-21 11:04] MED LIST changes: -XARELTO15 MG PO; +XARELTO20 MG PO
== END 2021-01-21 17:55 | disposition home or self-care (01) ==
LOC: ER 11:04
DX: L89.154 Pressure ulcer of sacral region, stage 4 (principal); E11.9 Type 2 diabetes mellitus without complications; G47.30 Sleep apnea, unspecified; Z86.711 Personal history of pulmonary embolism; F03.90 Unspecified dementia, unspecified severity, without behavioral disturbance, psychotic disturbance, mood disturbance, and anxiety; Z88.2 Allergy status to sulfonamides; Z91.048 Other nonmedicinal substance allergy status; Z79.4 Long term (current) use of insulin; Z79.899 Other long term (current) drug therapy
CPT/HCPCS: 99283-25

== ENCOUNTER 2021-01-25 00:04 | Inpatient (IN) | payer OTHER ==
[~2021-01-25] VITALS: Ht 172.7 cm; Wt 154.4 kg
[2021-01-25 00:38] LABS: BASOPHILS ABSOLUTE AUTO 0.03 K/mm3 (0.00-0.23); BASOPHILS PERCENT AUTO 0 % (0-2); EOSINOPHILS PERCENT AUTO 0 % (0-6); Hematocrit 30.8 % (37.0-53.0); Hemoglobin 9.3 g/dL (13.5-17.5); IMMATURE GRAN ABSOLUTE AUTO 0.08 K/mm3 (0.00-0.10); IMMATURE GRAN PERCENT AUTO 1 % (0-1); LYMPHOCYTES ABSOLUTE AUTO 1.03 K/mm3 (0.84-5.20); LYMPHOCYTES PERCENT AUTO 15 % (21-46); MONOCYTES ABSOLUTE AUTO 0.75 K/mm3 (0.16-1.47); MONOCYTES PERCENT AUTO 11 % (4-13); Mean Corpuscular HGB 28.4 pg (26.0-34.0); Mean Corpuscular HGB Conc 30.2 g/dL (31.5-36.5); Mean Corpuscular Volume 94 fL (80-100); Mean Platelet Volume 8.7 fL (9.1-12.4); NEUTROPHILS ABSOLUTE AUTO 5.01 K/mm3 (1.96-9.15); NEUTROPHILS PERCENT AUTO 73 % (41-73); NRBC ABSOLUTE 0.04 K/mm3 (0.00-0.02); NRBC Auto 0.6 /100 WBC (0.0-0.2); Platelet Count 388 K/mm3 (150-400); RDW Coefficient Variation 17.2 % (11.7-14.2); RDW Standard Deviation 59.5 fL (35.1-46.3); Red Blood Cell Count 3.27 M/mm3 (4.30-5.90)
[2021-01-25 01:01] LABS: Magnesium, Blood 2.3 mg/dL (1.6-2.4); Troponin I 0.119 ng/mL (0.000-0.040)
[2021-01-25 01:06] LABS: Alanine Aminotransfer (ALT/SGP 120 U/L (12-78); Albumin/Globulin Ratio 0.4 (0.8-1.8); Alk Phos 70 U/L (50-136); Anion Gap 4 mmol/L (6-16); Aspartate Aminotrans (AST/SGOT 86 U/L (12-37); Bilirubin, Total 0.3 mg/dL (0.1-1.0); Blood Urea Nitrogen 24 mg/dL (8-24); Bun/Creatinine Ratio 23.1 (12.0-20.0); CO2, Blood 28 mmol/L (21-32); Calcium, Blood 9.1 mg/dL (8.5-10.1); Chloride, Blood 103 mmol/L (98-108); Creatinine, Blood 1.04 mg/dL (0.60-1.20); Globulin, Blood 4.5 g/dL (2.2-4.0); Glomerular Filtration Rate >60 (60-); Glucose, Blood 122 mg/dL (70-99); Potassium, Blood 6.3 mmol/L (3.5-5.5); Sodium, Blood 135 mmol/L (136-145); Total Protein, Blood 6.5 g/dL (6.4-8.2)
[2021-01-25 02:02] LABS: International Normalized Ratio 1.21; Prothrombin Time Results 12.9 Sec (9.7-11.5)
[2021-01-25 02:28] LABS: SARS-Cov-2 (COVID-19) PCR, MMC POSITIVE (NEGATIVE)
--- NOTE | 2021-01-25 06:55 | NUR ---
PT ARRIVED FROM ED AT 0641. PT AWAKE ALERT AND ORIENT TO 4. ON NON-REBREATHER @ 8L. SATS 99%. SHAKES R/T PARKINSON'S DISEASE. DENIES PAIN. LUNGS CLEAR THROUGHOUT. ABLE TO MAKE NEEDS KNOWN, CALL LIGHT WITHIN REACH. VS STABLE.
[2021-01-25 08:41] LABS: Hematocrit 29.5 % (37.0-53.0); Hemoglobin 8.8 g/dL (13.5-17.5); Mean Corpuscular HGB 28.7 pg (26.0-34.0); Mean Corpuscular HGB Conc 29.8 g/dL (31.5-36.5); Mean Corpuscular Volume 96 fL (80-100); Mean Platelet Volume 8.7 fL (9.1-12.4); NRBC ABSOLUTE 0.04 K/mm3 (0.00-0.02); NRBC Auto 0.7 /100 WBC (0.0-0.2); Platelet Count 354 K/mm3 (150-400); RDW Coefficient Variation 17.4 % (11.7-14.2); RDW Standard Deviation 60.3 fL (35.1-46.3); Red Blood Cell Count 3.07 M/mm3 (4.30-5.90); White Blood Cell Count 6.06 K/mm3 (4.00-11.30)
[2021-01-25 09:03] LABS: Alanine Aminotransfer (ALT/SGP 105 U/L (12-78); Albumin, Blood 1.9 g/dL (3.4-5.0); Albumin/Globulin Ratio 0.5 (0.8-1.8); Alk Phos 64 U/L (50-136); Anion Gap 4 mmol/L (6-16); Aspartate Aminotrans (AST/SGOT 63 U/L (12-37); Bilirubin, Total 0.3 mg/dL (0.1-1.0); Blood Urea Nitrogen 22 mg/dL (8-24); Bun/Creatinine Ratio 23.3 (12.0-20.0); CO2, Blood 31 mmol/L (21-32); Calcium, Blood 8.8 mg/dL (8.5-10.1); Chloride, Blood 105 mmol/L (98-108); Creatinine, Blood 0.94 mg/dL (0.60-1.20); Globulin, Blood 4.2 g/dL (2.2-4.0); Glomerular Filtration Rate >60 (60-); Glucose, Blood 73 mg/dL (70-99); Potassium, Blood 5.3 mmol/L (3.5-5.5); Sodium, Blood 140 mmol/L (136-145); Total Protein, Blood 6.1 g/dL (6.4-8.2)
[2021-01-25 09:33] LABS: BAND PERCENT MAN 1 % (0-8); BASOPHILS PERCENT MAN 0 % (0-2); EOSINOPHILS PERCENT MAN 0 % (0-6); LYMPHOCYTES ABSOLUTE MAN 1.03 K/mm3 (0.84-5.20); LYMPHOCYTES PERCENT MAN 17 % (21-46); MONOCYTES ABSOLUTE MAN 0.66 K/mm3 (0.16-1.47); MONOCYTES PERCENT MAN 11 % (4-13); NEUTROPHILS ABSOLUTE MAN 4.36 K/mm3 (1.96-9.15); SEG NEUTROPHILS PERCENT MAN 71 % (41-73); TOTAL CELLS COUNTED 100
--- NOTE | 2021-01-25 14:20 | NUR ---
echocardiogram complete
--- NOTE | 2021-01-25 16:11 | NUR ---
Introduction: PT refered by nursing staff and family(mother). Assessment: PT presented lying in bed labored breathing and difficulty speaking. I notified PT who I was. I asked PT if he believed in God, PT replied, "Yes". PT was having extreme difficulty speaking and I was having trouble understanding. Intervention: PT offered devotional reading from [employer], in order to allow PT to listen without the need for communication. PT was offered prayer. Outcome: PT received devotional reading and prayer. Follow-Up: As needed or requested.
--- NOTE | 2021-01-26 04:55 | NUR ---
SHIFT SUMMARY PT ADMITTED FOR COVID 19+. AAOX3. CONFUSED. ON 10L HIGHFLOW. NO DISTRESS NOTED. LUNGS CLEAR THROUGHOUT. ARMANDO PATENT AND DRAINING PER GRAVITY. ON TELE. BED IN LOWEST POSITION. NO SIGNIFICANT CHANGES DURING SHIFT.
[2021-01-26 05:13] LABS: BASOPHILS ABSOLUTE AUTO 0.01 K/mm3 (0.00-0.23); BASOPHILS PERCENT AUTO 0 % (0-2); EOSINOPHILS PERCENT AUTO 0 % (0-6); Hematocrit 30.6 % (37.0-53.0); Hemoglobin 9.1 g/dL (13.5-17.5); IMMATURE GRAN ABSOLUTE AUTO 0.05 K/mm3 (0.00-0.10); IMMATURE GRAN PERCENT AUTO 1 % (0-1); LYMPHOCYTES ABSOLUTE AUTO 0.44 K/mm3 (0.84-5.20); LYMPHOCYTES PERCENT AUTO 10 % (21-46); MONOCYTES ABSOLUTE AUTO 0.23 K/mm3 (0.16-1.47); MONOCYTES PERCENT AUTO 5 % (4-13); Mean Corpuscular HGB 28.5 pg (26.0-34.0); Mean Corpuscular HGB Conc 29.7 g/dL (31.5-36.5); Mean Corpuscular Volume 96 fL (80-100); Mean Platelet Volume 8.6 fL (9.1-12.4); NEUTROPHILS ABSOLUTE AUTO 3.82 K/mm3 (1.96-9.15); NEUTROPHILS PERCENT AUTO 84 % (41-73); Platelet Count 388 K/mm3 (150-400); RDW Standard Deviation 59.4 fL (35.1-46.3); Red Blood Cell Count 3.19 M/mm3 (4.30-5.90); White Blood Cell Count 4.55 K/mm3 (4.00-11.30)
[2021-01-26 05:46] LABS: Alanine Aminotransfer (ALT/SGP 97 U/L (12-78); Albumin/Globulin Ratio 0.5 (0.8-1.8); Alk Phos 66 U/L (50-136); Anion Gap 3 mmol/L (6-16); Aspartate Aminotrans (AST/SGOT 53 U/L (12-37); Bilirubin, Total 0.3 mg/dL (0.1-1.0); Blood Urea Nitrogen 18 mg/dL (8-24); Bun/Creatinine Ratio 22.6 (12.0-20.0); CO2, Blood 31 mmol/L (21-32); Calcium, Blood 9.1 mg/dL (8.5-10.1); Chloride, Blood 104 mmol/L (98-108); Globulin, Blood 4.4 g/dL (2.2-4.0); Glomerular Filtration Rate >60 (60-); Glucose, Blood 171 mg/dL (70-99); Magnesium, Blood 2.5 mg/dL (1.6-2.4); Phosphorus, Blood 4.3 mg/dL (2.5-4.9); Potassium, Blood 5.7 mmol/L (3.5-5.5); Sodium, Blood 138 mmol/L (136-145); Total Protein, Blood 6.4 g/dL (6.4-8.2)
--- NOTE | 2021-01-27 04:59 | NUR ---
SHIFT SUMMARY PT AAOX2. CONFUSED. ADMITTED FOR COVID 19+. ON HIGHFLOW AT 10L. NO DISTRESS NOTED. VS STABLE. BED ALARM ON, BED IN LOWEST POSITION.
[2021-01-27 05:17] LABS: BASOPHILS ABSOLUTE AUTO 0.01 K/mm3 (0.00-0.23); BASOPHILS PERCENT AUTO 0 % (0-2); EOSINOPHILS PERCENT AUTO 0 % (0-6); Hematocrit 30.5 % (37.0-53.0); IMMATURE GRAN ABSOLUTE AUTO 0.05 K/mm3 (0.00-0.10); IMMATURE GRAN PERCENT AUTO 1 % (0-1); LYMPHOCYTES ABSOLUTE AUTO 0.73 K/mm3 (0.84-5.20); LYMPHOCYTES PERCENT AUTO 11 % (21-46); MONOCYTES PERCENT AUTO 6 % (4-13); Mean Corpuscular HGB 28.6 pg (26.0-34.0); Mean Corpuscular HGB Conc 29.5 g/dL (31.5-36.5); Mean Corpuscular Volume 97 fL (80-100); Mean Platelet Volume 8.8 fL (9.1-12.4); NEUTROPHILS ABSOLUTE AUTO 5.57 K/mm3 (1.96-9.15); NEUTROPHILS PERCENT AUTO 83 % (41-73); NRBC ABSOLUTE 0.02 K/mm3 (0.00-0.02); NRBC Auto 0.3 /100 WBC (0.0-0.2); Platelet Count 406 K/mm3 (150-400); RDW Coefficient Variation 17.1 % (11.7-14.2); RDW Standard Deviation 59.5 fL (35.1-46.3); Red Blood Cell Count 3.15 M/mm3 (4.30-5.90); White Blood Cell Count 6.76 K/mm3 (4.00-11.30)
[2021-01-27 05:55] LABS: Magnesium, Blood 2.4 mg/dL (1.6-2.4)
[2021-01-27 06:15] LABS: Alanine Aminotransfer (ALT/SGP 99 U/L (12-78); Albumin, Blood 2.1 g/dL (3.4-5.0); Albumin/Globulin Ratio 0.5 (0.8-1.8); Alk Phos 61 U/L (50-136); Anion Gap 2 mmol/L (6-16); Aspartate Aminotrans (AST/SGOT 48 U/L (12-37); Bilirubin, Total 0.3 mg/dL (0.1-1.0); Blood Urea Nitrogen 18 mg/dL (8-24); Bun/Creatinine Ratio 27.2 (12.0-20.0); CO2, Blood 33 mmol/L (21-32); Calcium, Blood 9.3 mg/dL (8.5-10.1); Chloride, Blood 105 mmol/L (98-108); Creatinine, Blood 0.66 mg/dL (0.60-1.20); Globulin, Blood 4.4 g/dL (2.2-4.0); Glomerular Filtration Rate >60 (60-); Glucose, Blood 126 mg/dL (70-99); Sodium, Blood 140 mmol/L (136-145); Total Protein, Blood 6.5 g/dL (6.4-8.2)
--- NOTE | 2021-01-27 13:19 | NUR ---
After receiving a call from patient's mother, Brigitte, requesting a spiritual care visit, I visit patient. He is resting but easily awakens to the sound of his name. Patient only whispers and nods to communicate while I am in the rm but speaks loudly to the Rn as I am leaving. He receives the loving message from Brigitte well and smiles. He also tells me that he is doing OK and that he would appreciate prayer. I gladly provide prayer and companionship. Ladan responds well and shows signs of an elevated mood. I then call Brigitte and inform her of the visit and she voices her appreciation and asks if I would continue to visit as often as possible. I assure that I will.
--- NOTE | 2021-01-27 19:11 | NUR ---
SHIFT SUMMARY PT AXO TO SELF AND FOLLOWING SOME DIRECTIONS, CONFUSED AT TIMES AND FORGETFUL. PT ON 10L HFNC AT START OF SHIFT BUT THEN WHEN SPOT CHECKED WAS 86 ON 10L. THEN IMMEDIATELY WAS 93% ON 11L. ARMANDO PATENT AND DRAINING CLEAR YELLOW URINE. 3750 ML OUT THIS SHIFT. SURGICAL CONSULT THIS SHIFT, SEE NOTE. MEPILEX ON COCCYX AT THIS TIME. THIS NURSE DISCUSSED CARE WITH PATIENT'S MOTHER WHO WAS VERY CONCERNED THAT HIS WOUND WAS NOT BEING TREATED ADEQUATELY. THIS NURSE ATTEMPTED TO REASSURE HER BY RECALLING THE WOUND CARE AND THAT THAT WE WERE (AT THE TIME) AWAITING SURGICAL CONSULT. REPOSITIONING STRONGLY ENCOURAGED WITH PATIENT TO KEEP PRESSURE OFF THE WOUND THROUGHOUT THE SHIFT. BED IN LOW POSITION, CALL LIGHT WITHIN REACH. BED ALARM ON.
--- NOTE | 2021-01-28 03:46 | NUR ---
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 REPAIR SERVICES INFORMED.
--- NOTE | 2021-01-28 04:10 | NUR ---
SHIFT SUMMARY ADMITTED FOR SOB. COVID + FOR 1 MONTH. RIGHT LOBE PNEUMONIA. FULL CODE. PLAN IS FOR RETURN TO [facility] WHEN STABLE. ARMANDO IN PLACE. ON XARELTO. MOTHER IS POA. IV ANTIBIOTICS ARE SCHEDULED. SURGICAL CONSULT FOR SACRAL ULCER, WILL PERFORM INTERVENTION WHEN PT IS MORE STABLE. ON 11 LPM HIGH FLOW NC, DESATURATES. DRESSING CHANGE WITH ALGINATE ROPE TO SACRAL ULCER THIS SHIFT. SOLUMEDROL IS SCHEDULED. ON XARELTO. HX: CHF, AORTIC/MITRAL STENOSIS, PARKINSONS.
[2021-01-28 06:03] LABS: BASOPHILS ABSOLUTE AUTO 0.01 K/mm3 (0.00-0.23); BASOPHILS PERCENT AUTO 0 % (0-2); EOSINOPHILS PERCENT AUTO 0 % (0-6); Hematocrit 34.6 % (37.0-53.0); Hemoglobin 10.5 g/dL (13.5-17.5); IMMATURE GRAN ABSOLUTE AUTO 0.08 K/mm3 (0.00-0.10); IMMATURE GRAN PERCENT AUTO 1 % (0-1); LYMPHOCYTES ABSOLUTE AUTO 0.79 K/mm3 (0.84-5.20); LYMPHOCYTES PERCENT AUTO 9 % (21-46); MONOCYTES ABSOLUTE AUTO 0.56 K/mm3 (0.16-1.47); MONOCYTES PERCENT AUTO 7 % (4-13); Mean Corpuscular HGB 28.6 pg (26.0-34.0); Mean Corpuscular HGB Conc 30.3 g/dL (31.5-36.5); Mean Corpuscular Volume 94 fL (80-100); Mean Platelet Volume 8.8 fL (9.1-12.4); NEUTROPHILS ABSOLUTE AUTO 7.15 K/mm3 (1.96-9.15); NEUTROPHILS PERCENT AUTO 83 % (41-73); Platelet Count 414 K/mm3 (150-400); RDW Standard Deviation 57.7 fL (35.1-46.3); Red Blood Cell Count 3.67 M/mm3 (4.30-5.90); White Blood Cell Count 8.59 K/mm3 (4.00-11.30)
[2021-01-28 06:31] LABS: Alanine Aminotransfer (ALT/SGP 75 U/L (12-78); Albumin/Globulin Ratio 0.5 (0.8-1.8); Alk Phos 59 U/L (50-136); Anion Gap 2 mmol/L (6-16); Aspartate Aminotrans (AST/SGOT 33 U/L (12-37); Bilirubin, Total 0.2 mg/dL (0.1-1.0); Blood Urea Nitrogen 24 mg/dL (8-24); Bun/Creatinine Ratio 31.8 (12.0-20.0); CO2, Blood 33 mmol/L (21-32); Calcium, Blood 9.2 mg/dL (8.5-10.1); Chloride, Blood 105 mmol/L (98-108); Creatinine, Blood 0.76 mg/dL (0.60-1.20); Globulin, Blood 4.1 g/dL (2.2-4.0); Glomerular Filtration Rate >60 (60-); Glucose, Blood 134 mg/dL (70-99); Magnesium, Blood 2.4 mg/dL (1.6-2.4); Phosphorus, Blood 4.6 mg/dL (2.5-4.9); Potassium, Blood 5.4 mmol/L (3.5-5.5); Sodium, Blood 140 mmol/L (136-145); Total Protein, Blood 6.1 g/dL (6.4-8.2)
[2021-01-28 17:30] LABS: Vancomycin, Trough 26.1 ug/mL (5.0-10.0)
--- NOTE | 2021-01-28 17:39 | NUR ---
SHIFT SUMMARY PT IS ON 7L HIGHFLOW MAINTAINING AT 94%. WOUND CARE DONE TODAY, PACKED WITH ALGEANATE AND COVERED IN MEPELEX. MEASURED TO BE BE 5 CM DEEP. PT HAS LOW BP TODAY AND BOTH DOSES OF METROPOLOL NOT GIVEN. PT IS EAGER TO DISCHARGE HOME. DENIES CHEST PAIN. WILL CONTINUE TO MONITOR.
--- NOTE | 2021-01-29 04:12 | NUR ---
SHIFT SUMMARY ADMITTED FOR SOB. FULL CODE. COVID+ ONE MONTH AGO. ARMANDO IN PLACE. 7 LPM HIGH FLOW O2, CPAP @ HS. SACRAL ULCER W/ SHIFTLY WOUND DRESSING CHANGES. RIGHT LOBE PNEUMONIA. 2 PERSON HEAVY ASSIST TO BSC. ON XARELTO. IV ANTIBIOTICS ARE SCHEDULED, STEROIDS ARE SCHEDULED. HX: AORTIC/MITRAL STENOSIS, CHF, PE'S, SCHIZOAFFECTIVE DISORDER, PARKINSONS. SOFT BP'S NOTED - METOPROLOL HELD. MOM IS POA. HE LIVES AT [facility].
[2021-01-29 05:24] LABS: BASOPHILS ABSOLUTE AUTO 0.01 K/mm3 (0.00-0.23); BASOPHILS PERCENT AUTO 0 % (0-2); EOSINOPHILS PERCENT AUTO 0 % (0-6); Hematocrit 33.7 % (37.0-53.0); Hemoglobin 10.1 g/dL (13.5-17.5); IMMATURE GRAN ABSOLUTE AUTO 0.04 K/mm3 (0.00-0.10); IMMATURE GRAN PERCENT AUTO 1 % (0-1); LYMPHOCYTES ABSOLUTE AUTO 0.83 K/mm3 (0.84-5.20); LYMPHOCYTES PERCENT AUTO 10 % (21-46); MONOCYTES ABSOLUTE AUTO 0.48 K/mm3 (0.16-1.47); MONOCYTES PERCENT AUTO 6 % (4-13); Mean Corpuscular HGB 28.8 pg (26.0-34.0); Mean Corpuscular Volume 96 fL (80-100); Mean Platelet Volume 8.6 fL (9.1-12.4); NEUTROPHILS ABSOLUTE AUTO 7.04 K/mm3 (1.96-9.15); NEUTROPHILS PERCENT AUTO 84 % (41-73); Platelet Count 420 K/mm3 (150-400); RDW Coefficient Variation 16.9 % (11.7-14.2); RDW Standard Deviation 59.3 fL (35.1-46.3); Red Blood Cell Count 3.51 M/mm3 (4.30-5.90)
[2021-01-29 06:00] LABS: Alanine Aminotransfer (ALT/SGP 64 U/L (12-78); Albumin, Blood 2.2 g/dL (3.4-5.0); Albumin/Globulin Ratio 0.5 (0.8-1.8); Alk Phos 60 U/L (50-136); Anion Gap 2 mmol/L (6-16); Aspartate Aminotrans (AST/SGOT 26 U/L (12-37); Bilirubin, Total 0.3 mg/dL (0.1-1.0); Blood Urea Nitrogen 28 mg/dL (8-24); Bun/Creatinine Ratio 39.7 (12.0-20.0); C-REACTIVE PROTEIN, EXT RANGE 0.685 mg/dL (0.000-0.300); CO2, Blood 37 mmol/L (21-32); Calcium, Blood 9.7 mg/dL (8.5-10.1); Chloride, Blood 101 mmol/L (98-108); Creatinine, Blood 0.71 mg/dL (0.60-1.20); Globulin, Blood 4.2 g/dL (2.2-4.0); Glomerular Filtration Rate >60 (60-); Glucose, Blood 122 mg/dL (70-99); Magnesium, Blood 2.2 mg/dL (1.6-2.4); Phosphorus, Blood 3.2 mg/dL (2.5-4.9); Potassium, Blood 5.2 mmol/L (3.5-5.5); Sodium, Blood 140 mmol/L (136-145); Total Protein, Blood 6.4 g/dL (6.4-8.2)
--- NOTE | 2021-01-29 13:36 | NUR ---
Introduction: PT refered by Spiritual Care Team Assessment: PT presented seated upright in bed, pleasant demeanor. PT expressed that he was feeling much better, compared to my last visit with him. PT also shared excitement that he may be discharged soon. PT shared, "For a hobby I bettina flies, paint and color. I also evangelize." We spoke briefly about good fishing in the area. Intervention: PT offered prayer, scripture reading and devotional. Outcome: PT did not want a devotional reading, but specifically requested Psalm 23 and 91, of which I read to PT. PT also received prayer. Follow-Up: As needed or requested.
[2021-01-29] MEDS ORDERED: HUMALOG KW100 UNIT/1 SC ×2 (14:02)
[2021-01-29] MEDS ORDERED: ASPI81CH PO ×2 (14:10)
[2021-01-29] MEDS ORDERED: ALBU90OI INH ×2 (14:10)
[2021-01-29] MEDS ORDERED: CEFP200 PO ×2 (14:11)
[2021-01-29] MEDS ORDERED: DOCU100 PO ×2 (14:11)
[2021-01-29] MEDS ORDERED: LORA10ER PO ×2 (14:12)
[2021-01-29] MEDS ORDERED: Metoprolol Tart25 MG PO ×2 (14:17)
[2021-01-29] MEDS ORDERED: VISBIOME 112.51 EACH PO ×2 (14:19)
[2021-01-29] MEDS ORDERED: ZINC220 PO ×2 (14:19)
[2021-01-29] MEDS ORDERED: ZOFRAN4 MG PO ×2 (14:19)
--- NOTE | 2021-01-29 18:28 | NUR ---
PATIENT D/C'D TO [facility] VIA W/C MEDICAL TRANSPORT. REPORT CALLED TO NURSE AT [facility]. D/C PACKET SENT WITH OIL RIGGER. PATIENT DENIES ANY FURTHER QUESTIONS OR CONCERNS.
== END 2021-01-29 18:25 | disposition home or self-care (01) | DRG 177 ==
LOC: ER 00:04 → MEDS 00:05
PROVIDERS: Family Medicine; Pharmacist; Student in an Organized Health Care Education/Training Program; ADMIT Internal Medicine
PROC: 8E0ZXY6 Isolation (ICD-10-PCS; principal; 2021-01-26)
DX: U07.1 COVID-19 (principal); J12.82 Pneumonia due to coronavirus disease 2019; I21.A1 Myocardial infarction type 2; J96.21 Acute and chronic respiratory failure with hypoxia; Z68.43 Body mass index [BMI] 50.0-59.9, adult; G47.33 Obstructive sleep apnea (adult) (pediatric); G89.29 Other chronic pain; M54.9 Dorsalgia, unspecified; E11.9 Type 2 diabetes mellitus without complications; F25.9 Schizoaffective disorder, unspecified; F03.90 Unspecified dementia, unspecified severity, without behavioral disturbance, psychotic disturbance, mood disturbance, and anxiety; G20 Parkinson's disease; E66.01 Morbid (severe) obesity due to excess calories; I11.0 Hypertensive heart disease with heart failure; L89.150 Pressure ulcer of sacral region, unstageable; I50.9 Heart failure, unspecified; E78.5 Hyperlipidemia, unspecified; E87.5 Hyperkalemia; I08.0 Rheumatic disorders of both mitral and aortic valves; Y95 Nosocomial condition; F17.210 Nicotine dependence, cigarettes, uncomplicated; Z86.711 Personal history of pulmonary embolism; Z88.2 Allergy status to sulfonamides; Z91.048 Other nonmedicinal substance allergy status; Z79.899 Other long term (current) drug therapy; Z79.51 Long term (current) use of inhaled steroids; Z79.4 Long term (current) use of insulin; Z79.01 Long term (current) use of anticoagulants
CPT/HCPCS: 31502; 36415; 71045; 71260; 80053; 80202; 82947; 83605; 83735; 84100; 84132; 84145; 84484; 85025; 85379; 85610; 85730; 86140; 86141; 87070; 87075; 87077; 87186; 93005; 93010; 93306; 94640; 94660; 94664; 94760; 94762; 96365; 96375; 96376; 99285-25; A9270; G0378; J0610; J0692; J0696; J1815; J1940; J2543; J2920; J3370; J7030; J7050; Q9967; U0004

== ENCOUNTER 2021-02-05 02:06 | Day surgery (SDC) | payer OTHER ==
[~2021-02-05 02:06] MED LIST changes: +ALBU90OI INH; +ASPI81CH PO; +CEFP200 PO; +HUMALOG KW100 UNIT/1 SC; +LORA10ER PO; +Metoprolol Tart25 MG PO; +VISBIOME 112.51 EACH PO; +ZINC220 PO; +ZOFRAN4 MG PO
== END 2021-02-05 23:07 | disposition home or self-care (01) ==
LOC: WOUND 02:06
DX: L89.153 Pressure ulcer of sacral region, stage 3 (principal); E11.9 Type 2 diabetes mellitus without complications; F17.200 Nicotine dependence, unspecified, uncomplicated; Z99.81 Dependence on supplemental oxygen; I11.0 Hypertensive heart disease with heart failure; I50.9 Heart failure, unspecified; J44.9 Chronic obstructive pulmonary disease, unspecified; Z86.16 Personal history of COVID-19; Z88.2 Allergy status to sulfonamides
CPT/HCPCS: A9270; G0463

== ENCOUNTER → 2021-05-14 | Outpatient (CLI) | payer OTHER | END | disposition home or self-care (01) | LOC: LAB SHORT 08:15 | DX: R73.09 Other abnormal glucose (principal) | CPT/HCPCS: 83036 ==

== ENCOUNTER → 2021-05-26 | Outpatient (CLI) | payer OTHER ==
[2021-05-26 12:55] LABS: Valproic Acid 54.2 ug/mL (50.0-100.0)
== END ==
LOC: LAB SHORT 11:04
PROVIDERS: Psychiatry & Neurology Psychiatry
DX: Z51.81 Encounter for therapeutic drug level monitoring (principal); Z79.899 Other long term (current) drug therapy
CPT/HCPCS: 80164

== ENCOUNTER → 2021-06-04 | Outpatient (CLI) | payer OTHER ==
[2021-06-04 19:08] LABS: Source, Urine Clean Catch
[2021-06-04 19:31] LABS: Appearance, Urine Clear (Clear); Bilirubin, Urine Neg (Neg); Blood, Urine Neg (Neg); Glucose Qualitative, Urine Neg (Neg); Ketones, Urine Neg (Neg); Leukocyte Esterase, Urine Neg (Neg); Nitrite, Urine Neg (Neg); Protein, Urine Neg (Neg); Urobilinogen, Urine NORM (Normal)
[2021-06-04 19:42] LABS: Color, Urine Pale Yellow (P-Yellow)
== END ==
LOC: LAB SHORT 19:05
PROVIDERS: Family Medicine
DX: N39.0 Urinary tract infection, site not specified (principal)
CPT/HCPCS: 81003

== ENCOUNTER → 2021-07-02 | Outpatient (CLI) | payer OTHER ==
[2021-07-02 13:25] LABS: BASOPHILS ABSOLUTE AUTO 0.04 K/mm3 (0.00-0.23); BASOPHILS PERCENT AUTO 1 % (0-2); EOSINOPHILS ABSOLUTE AUTO 0.06 K/mm3 (0.00-0.68); EOSINOPHILS PERCENT AUTO 1 % (0-6); Hematocrit 36.1 % (37.0-53.0); Hemoglobin 10.8 g/dL (13.5-17.5); IMMATURE GRAN ABSOLUTE AUTO 0.03 K/mm3 (0.00-0.10); IMMATURE GRAN PERCENT AUTO 0 % (0-1); LYMPHOCYTES ABSOLUTE AUTO 1.37 K/mm3 (0.84-5.20); LYMPHOCYTES PERCENT AUTO 17 % (21-46); MONOCYTES ABSOLUTE AUTO 0.72 K/mm3 (0.16-1.47); MONOCYTES PERCENT AUTO 9 % (4-13); Mean Corpuscular HGB 25.1 pg (26.0-34.0); Mean Corpuscular HGB Conc 29.9 g/dL (31.5-36.5); Mean Corpuscular Volume 84 fL (80-100); Mean Platelet Volume 9.2 fL (9.1-12.4); NEUTROPHILS ABSOLUTE AUTO 5.93 K/mm3 (1.96-9.15); NEUTROPHILS PERCENT AUTO 73 % (41-73); Platelet Count 358 K/mm3 (150-400); RDW Coefficient Variation 16.6 % (11.7-14.2); RDW Standard Deviation 50.8 fL (35.1-46.3); White Blood Cell Count 8.15 K/mm3 (4.00-11.30)
[2021-07-02 13:35] LABS: Alanine Aminotransfer (ALT/SGP 15 U/L (12-78); Albumin, Blood 2.8 g/dL (3.4-5.0); Albumin/Globulin Ratio 0.8 (0.8-1.8); Alk Phos 82 U/L (50-136); Anion Gap 7 mmol/L (6-16); Aspartate Aminotrans (AST/SGOT 13 U/L (12-37); Bilirubin, Total 0.3 mg/dL (0.1-1.0); Blood Urea Nitrogen 10 mg/dL (8-24); Bun/Creatinine Ratio 15.7 (12.0-20.0); CO2, Blood 28 mmol/L (21-32); Calcium, Blood 9.3 mg/dL (8.5-10.1); Chloride, Blood 106 mmol/L (98-108); Creatinine, Blood 0.64 mg/dL (0.60-1.20); Globulin, Blood 3.7 g/dL (2.2-4.0); Glomerular Filtration Rate >60 (60-); Glucose, Blood 205 mg/dL (70-99); Potassium, Blood 4.8 mmol/L (3.5-5.5); Sodium, Blood 141 mmol/L (136-145); Total Protein, Blood 6.5 g/dL (6.4-8.2); Valproic Acid 48.4 ug/mL (50.0-100.0)
== END ==
LOC: LAB 08:45 → LAB SHORT 08:45
PROVIDERS: Psychiatry & Neurology Psychiatry
DX: Z13.228 Encounter for screening for other metabolic disorders (principal); Z51.81 Encounter for therapeutic drug level monitoring; R68.89 Other general symptoms and signs; Z79.01 Long term (current) use of anticoagulants
CPT/HCPCS: 80053; 80164; 85025

== ENCOUNTER → 2021-08-15 | Outpatient (CLI) | payer OTHER ==
[2021-08-15 14:17] LABS: Percent Saturation 10.2 % (20.0-50.0)
== END | disposition home or self-care (01) ==
LOC: LAB SHORT 10:42
PROVIDERS: Family Medicine
DX: R73.09 Other abnormal glucose (principal)
CPT/HCPCS: 83036; 83540; 83550

== ENCOUNTER → 2021-09-17 | Outpatient (CLI) | payer OTHER | END | disposition home or self-care (01) | LOC: LAB 09:43 → LAB SHORT 09:43 | PROVIDERS: Psychiatry & Neurology Psychiatry | DX: Z51.81 Encounter for therapeutic drug level monitoring (principal); Z79.899 Other long term (current) drug therapy | CPT/HCPCS: 80164 ==

== ENCOUNTER → 2021-10-21 | Outpatient (CLI) | payer OTHER ==
[2021-10-21 18:46] LABS: Thyroid Stimulating Hormone 1.4 uIU/mL (0.360-4.800); Thyroxine (T4) 9.1 ug/dL (4.5-12.1)
== END | disposition home or self-care (01) ==
LOC: LAB SHORT 14:25 → LAB 14:25
PROVIDERS: Internal Medicine Hematology & Oncology
DX: R53.83 Other fatigue (principal); E53.8 Deficiency of other specified B group vitamins
CPT/HCPCS: 82607; 82746; 84436; 84443

== ENCOUNTER → 2021-10-21 | Outpatient (CLI) | payer OTHER ==
[2021-10-22 12:13] LABS: Source, Urine Clean Catch
[2021-10-22 13:06] LABS: Appearance, Urine Clear (Clear); Bilirubin, Urine Neg (Neg); Blood, Urine Neg (Neg); Color, Urine Yellow (P-Yellow); Glucose Qualitative, Urine Neg (Neg); Ketones, Urine Neg (Neg); Leukocyte Esterase, Urine Neg (Neg); Nitrite, Urine Neg (Neg); Protein, Urine Neg (Neg); Specific Gravity, Urine 1.015 (1.003-1.022); Urobilinogen, Urine NORM (Normal)
== END | disposition home or self-care (01) ==
LOC: LAB 16:00 → LAB SHORT 16:00
PROVIDERS: Family Medicine
DX: N39.0 Urinary tract infection, site not specified (principal)
CPT/HCPCS: 81003

== ENCOUNTER → 2021-11-19 | Outpatient (CLI) | payer OTHER | END | disposition home or self-care (01) | LOC: LAB SHORT 08:19 → LAB 08:19 | DX: R73.09 Other abnormal glucose (principal) | CPT/HCPCS: 83036 ==

== ENCOUNTER → 2022-02-18 | Outpatient (CLI) | payer OTHER | END | disposition home or self-care (01) | LOC: LAB 08:22 → LAB SHORT 08:22 | DX: R73.09 Other abnormal glucose (principal) | CPT/HCPCS: 83036 ==

== ENCOUNTER → 2022-05-13 | Outpatient (CLI) | payer OTHER ==
[2022-05-13 12:33] LABS: Valproic Acid 83.5 ug/mL (50.0-100.0)
== END | disposition home or self-care (01) ==
LOC: LAB SHORT 09:46
PROVIDERS: Psychiatry & Neurology Psychiatry
DX: Z51.81 Encounter for therapeutic drug level monitoring (principal); R73.09 Other abnormal glucose; Z79.899 Other long term (current) drug therapy
CPT/HCPCS: 80164; 83036

== ENCOUNTER 2022-07-01 11:55 | Inpatient (IN) | payer OTHER ==
[~2022-07-01] VITALS: Ht 172.7 cm; Wt 142.0 kg
[~2022-07-01 11:55] MED LIST changes: +METO25ER PO; -Metoprolol Tart25 MG PO
[2022-07-01 12:22] LABS: BASOPHILS ABSOLUTE AUTO 0.03 K/mm3 (0.00-0.23); BASOPHILS PERCENT AUTO 0 % (0-2); EOSINOPHILS PERCENT AUTO 0 % (0-6); Hematocrit 36.1 % (37.0-53.0); Hemoglobin 11.8 g/dL (13.5-17.5); IMMATURE GRAN ABSOLUTE AUTO 0.06 K/mm3 (0.00-0.10); IMMATURE GRAN PERCENT AUTO 1 % (0-1); LYMPHOCYTES ABSOLUTE AUTO 0.59 K/mm3 (0.84-5.20); LYMPHOCYTES PERCENT AUTO 7 % (21-46); MONOCYTES ABSOLUTE AUTO 1.12 K/mm3 (0.16-1.47); MONOCYTES PERCENT AUTO 13 % (4-13); Mean Corpuscular HGB 28.4 pg (26.0-34.0); Mean Corpuscular HGB Conc 32.7 g/dL (31.5-36.5); Mean Corpuscular Volume 87 fL (80-100); Mean Platelet Volume 8.8 fL (9.1-12.4); NEUTROPHILS ABSOLUTE AUTO 7.09 K/mm3 (1.96-9.15); NEUTROPHILS PERCENT AUTO 80 % (41-73); Platelet Count 220 K/mm3 (150-400); RDW Coefficient Variation 15.1 % (11.7-14.2); RDW Standard Deviation 48.2 fL (35.1-46.3); Red Blood Cell Count 4.15 M/mm3 (4.30-5.90); White Blood Cell Count 8.89 K/mm3 (4.00-11.30)
[2022-07-01 12:44] LABS: Albumin, Blood 2.3 g/dL (3.4-5.0); Albumin/Globulin Ratio 0.7 (0.8-1.8); Bilirubin, Total 0.4 mg/dL (0.1-1.0); Bun/Creatinine Ratio 22.3 (12.0-20.0); Calcium, Blood 7.4 mg/dL (8.5-10.1); Creatinine, Blood 0.67 mg/dL (0.60-1.20); Globulin, Blood 3.5 g/dL (2.2-4.0); Potassium, Blood 3.3 mmol/L (3.5-5.5); Total Protein, Blood 5.8 g/dL (6.4-8.2)
[2022-07-01 15:16] LABS: Source, Urine Clean Catch
[2022-07-01 15:23] LABS: Appearance, Urine Clear (Clear); Bilirubin, Urine Neg (Neg); Blood, Urine Neg (Neg); Color, Urine Yellow (P-Yellow); Glucose Qualitative, Urine Neg (Neg); Ketones, Urine Neg (Neg); Leukocyte Esterase, Urine Neg (Neg); Nitrite, Urine Neg (Neg); Protein, Urine 1+ (Neg); Urobilinogen, Urine NORM (Normal); pH, Urine 6.5 (5.0-8.0)
[2022-07-01 15:53] LABS: Alanine Aminotransfer (ALT/SGP 15 U/L (12-78); Albumin, Blood 2.4 g/dL (3.4-5.0); Albumin/Globulin Ratio 0.7 (0.8-1.8); Alk Phos 51 U/L (50-136); Aspartate Aminotrans (AST/SGOT 18 U/L (12-37); Bilirubin, Direct <0.1 mg/dL (0.0-0.3); Bilirubin, Indirect Unable to Calculate mg/dL (0.1-0.7); Bilirubin, Total 0.2 mg/dL (0.1-1.0); Globulin, Blood 3.3 g/dL (2.2-4.0); Magnesium, Blood 1.7 mg/dL (1.6-2.4); Phosphorus, Blood 2.4 mg/dL (2.5-4.9); Total Protein, Blood 5.7 g/dL (6.4-8.2)
[2022-07-01 15:58] LABS: International Normalized Ratio 1.38; Prothrombin Time Results 14.2 Sec (9.7-11.5)
[2022-07-01 17:33] LABS: Influenza A, PCR NEGATIVE (NEGATIVE); Influenza B, PCR NEGATIVE (NEGATIVE); Resp Syncytial Virus, PCR NEGATIVE (NEGATIVE)
[2022-07-01 17:36] LABS: SARS-Cov-2 (COVID-19) PCR, MMC POSITIVE (NEGATIVE)
[2022-07-01] MEDS ORDERED: ZYRTEC10 M2 PO (22:53)
[2022-07-01] MEDS ORDERED: INVEGA SUS IM (23:01)
[2022-07-01] MEDS ORDERED: METF500 PO (23:02)
[2022-07-01] MEDS ORDERED: MAGNESIUM OXID500 MG PO (23:02)
[2022-07-01] MEDS ORDERED: PALI6TA (23:03)
[2022-07-01] MEDS ORDERED: TRAZ150T57 PO (23:04)
[2022-07-01] MEDS ORDERED: ASCO500 PO (23:06)
[2022-07-01] MEDS ORDERED: VITAMIN D325 MC3 PO (23:06)
[2022-07-01] MEDS ORDERED: Zinc Gluconate100 MG PO (23:07)
[2022-07-01] MEDS ORDERED: XARELTO20 MG PO (23:07)
[2022-07-01] MEDS ORDERED: HALO5 PO (23:10)
[2022-07-01] MEDS ORDERED: LOPE2C PO (23:11)
[2022-07-02 01:23] LABS: Base Excess Venous 6.9 mmol/L; Bicarbonate Venous 28.9 mmol/L (24.0-30.0); PCO2 Venous 51.9 mmHg (38-42)
--- NOTE | 2022-07-02 02:27 | NUR ---
PT ADMITTED TO PCU PT CAME TO THE ROOM AND PT WAS ALERT AND ABLE TO ANSWER QUESTIONS, STAY AWAKE, TAKE ORAL MEDICATIONS W/O AN ISSUE AND FOLLOW COMMANDS. HIS IV FLUIDS WERE PUT ON HOLD BECAUSE WE ARE DIURESISING HIM. DR SANTOS CALLED ABOUT HOLDING THE FLUIDS AND STARTING THE PT ON THE CORRECT DOSES OF HOME MEDICATIONS. PT PLACED ON BIPAP 14/8 25%. AT 0000 VS AND REASSESSMENT PT WOULD NOT AWAKE TO VERBAL OR PAINFUL STIMULI. IT WAS ABOUT A MINUTE OF STERNAL RUBS TO GET THE PT TO OPEN HIS EYES. HE WAS SAYING ONLY 1-3 WORDS AT A TIME AND WOULD NOT FOLLOW COMMANDS. A NUERO ASSESSMENT WAS DONE TO THE BEST OF THE PT'S ABILITY AT THE TIME. HIS MOTHER, WHO IS HIS LEGAL GAURDIAN, HAS BEEN AT THE BEDSIDE AND STATED THAT SHE HAS NEVER SEEN THE PT HE PRESENTS. PT'S HR IS 120'S, BP HYPERTENSIVE, BLOOD SUGAR 128, AND AN ORAL TEMPATURE WAS 103. NOTIFIED AND STATED THAT SHE IS NOT CONCERNED OF THE PT'S BP AT THIS TIME AND TO NOTIFY HER IF IT IS ABOVE 160 SYSTOLIC. SHE WANTED TO KEEP THE PT ON BIPAP, OBTAIN A VBG, AND RESTART HIS FLUIDS. WE PLACED ICE PACKS UNDER THE PT'S AXILLARY REGION, GROIN, BEHIND THE NECK, AND BEHIND THE KNEES. A COOLING KPAD WAS PLACED UNDER AND ON TOP OF THE PT. DR. SANTOS HAS NOT GIVEN ANY MORE ORDERS AT THIS TIME. SEE NOTES FOR ANY UPDATES.
[2022-07-02 04:24] LABS: BASOPHILS ABSOLUTE AUTO 0.02 K/mm3 (0.00-0.23); BASOPHILS PERCENT AUTO 0 % (0-2); EOSINOPHILS ABSOLUTE AUTO 0.01 K/mm3 (0.00-0.68); EOSINOPHILS PERCENT AUTO 0 % (0-6); IMMATURE GRAN ABSOLUTE AUTO 0.04 K/mm3 (0.00-0.10); IMMATURE GRAN PERCENT AUTO 1 % (0-1); LYMPHOCYTES ABSOLUTE AUTO 0.75 K/mm3 (0.84-5.20); LYMPHOCYTES PERCENT AUTO 10 % (21-46); MONOCYTES ABSOLUTE AUTO 0.96 K/mm3 (0.16-1.47); MONOCYTES PERCENT AUTO 13 % (4-13); Mean Corpuscular HGB 27.8 pg (26.0-34.0); Mean Corpuscular HGB Conc 31.7 g/dL (31.5-36.5); Mean Corpuscular Volume 88 fL (80-100); NEUTROPHILS ABSOLUTE AUTO 5.44 K/mm3 (1.96-9.15); NEUTROPHILS PERCENT AUTO 75 % (41-73); Platelet Count 225 K/mm3 (150-400); RDW Coefficient Variation 15.3 % (11.7-14.2); RDW Standard Deviation 49.1 fL (35.1-46.3); Red Blood Cell Count 4.67 M/mm3 (4.30-5.90); White Blood Cell Count 7.22 K/mm3 (4.00-11.30)
--- NOTE | 2022-07-02 04:45 | NUR ---
SHIFT SUMMARY/UPDATE SEE PREVIOUS NOTE FOR BEGINNING OF THE NIGHT EVENTS. PT IS MORE ALERT NOW THAN AT 0000, HE IS BEGINNING TO RESPOND TO VERBAL STIMULI AND ANSWER MORE QUESTIONS. HIS MOTHER STATED THAT HE IS FEELING BETTER THAN 0000. HE WAS MEDICATED ONCE W/ 10 MG HYDRALIZINE IV FOR SBP >160, AND IT IS STARTING TO TREND DOWN. PT HAS COOLING INTERVENTIONS STILL IN PLACE AND HIS TEMPATURE IS 102.9 (DOWN FROM 103.4). HE IS ON BIPAP 14/8 25% W/O ANY ANXIETY. PT RESTING IN THE ROOM, Q2 TURN, HAS A ARMANDO DRAINING TO GRAVITY, AND HAS VS ON CONTINUOUS MONITORING. HIS BED ALARM IS ON, BED IS IN LOW, AND CALL LIGHT IS IN REACH. WILL CONTINUE TO MONITOR UNTIL SHIFT REPORT IS GIVEN TO THE ONCOMING SHIFT RN. SEE NOTES FOR ANY UPDATES.
[2022-07-02 17:21] LABS: Albumin, Blood 2.8 g/dL (3.4-5.0); Albumin/Globulin Ratio 0.7 (0.8-1.8); Bilirubin, Total 0.3 mg/dL (0.1-1.0); Bun/Creatinine Ratio 17.1 (12.0-20.0); Creatinine, Blood 0.82 mg/dL (0.60-1.20); Globulin, Blood 4.1 g/dL (2.2-4.0); Potassium, Blood 3.8 mmol/L (3.5-5.5); Total Protein, Blood 6.9 g/dL (6.4-8.2)
--- NOTE | 2022-07-02 18:06 | NUR ---
SHIFT SUMMARY PATIENT DROWSY IN AM BUT WAKES TO HIS NAME. ABLE TO STATE HIS NAME, . ORIENTED TO NURSE AND FAMILY MEMBER IN ROOM. BEDREST, ALL LIMBS WEAK WITH LIMITED MOVEMENT. SLEEPS FREQUENTLY WITH HEAD BENT FORWARD AND TO THE RIGHT AT ALL TIMES. ON BIPAP DURING AM, ABLE TO SWITCH TO 3L NC MID MORNING FOR BREAKFAST AND AM MEDS. SPO2 REMAINED STABLE IN MID 90S. TEMP TRENDED DOWN THROUGHOUT DAY WITH ICE PACKS REPLENISHED AND PO TYLENOL GIVEN PER EMAR. CHEM BGS ACHS, COVERED PER SS ON EMAR. IV ABX AND ANTIVIRAL, REMAINS IN ENHANCED ISO FOR COVID. BEDBATH THIS SHIFT. ORDERS GIVEN FOR TRANSFER TO MED WITH TELE. PRABHA PATENT AND DRAINING KRYSTAL URINE. NEW POWERGLIDE PLACED THIS SHIFT. REDNESS TO ALL SKIN FOLDS AND COCCYX. REPOSITIONED AND POWDER APPLIED AFTER BEDBATH.
--- NOTE | 2022-07-02 23:53 | NUR ---
REPORT GIVEN TO KEIRA TORRES ON THE MEDICAL FLOOR. PATIENT TRANSFERRED TO ROOM 354 SOON BARIATRIC BED WAS IN PLACE.
--- NOTE | 2022-07-03 05:49 | NUR ---
Shift Summary Pt transfered to this unit from PCU with dx of pneumonia and ARF secondary to covid. Pt was transfered to a bariatric bed. He is a 2 person assist at baseline, with illness related weakness he is currently bedbound and on a lift sheet. Saavedra in place for retention. Pt's mother stays in the room with him, per report this was OK'd by the doctor. PT is AOx4, responsive and cooperative with care. Pt slept well with home CPAP throughout the night.
--- NOTE | 2022-07-03 15:14 | NUR ---
CALLED DR. PITTMAN AT THIS TIME REGARDING PATIENT REQUEST OF NICOTINE LOZENGES. PER DR. PITTMAN SHE WILL PLACED THE ORDER IN EMAR.
--- NOTE | 2022-07-03 15:52 | NUR ---
SHIFT SUMMARY: PATIENT A&OX4. WIDE AWAKE TODAY, AND ANSWER TO QUESTIONS APPROPRIATELY. CALM, PLEASANT AND COOPERATIVE c CARE. USES CALL LIGHT APPROPRIATELY AND ABLE TO MAKE NEEDS KNOWN. PATIENT STILL ON ENHANCED ISOLATION FOR COVID POSITIVE. PATIENT DENIES CP/PRESSURE. ON TELE, SR HR OF 72 BPM c BBB, PER SENIOR PORTFOLIO ANALYST KHURRAM COSTA. AT BEGINNING OF SHIFT PATIENT WAS ON O2 4L VIA NC c SPO2 OF 98-100%. AT AROUND 1000 O2 WAS TITRATED DOWN TO 2L VIA NC c SPO2 OF 96-98%. PATIENT HAS BEEN MONITORED T/O THIS PROCESS. AT AROUND 1130 O2 WAS TITRATED TO 1L VIA NC c SPO2 OF 94-96%. AT AROUND 1230 PATIENT WAS PLACED ON RA c SPO2 RANGES 88-94% T/O SHIFT. LUNGS CLEAR/DIM T/O TO AUSCULTATION. PATIENT BASELINE AT HOME DOES NOT USE O2 BUT WEAR CPAP AT HS. PATIENT DENIES SOB, GENERALIZED PAIN, N/V. RECEIVED SCHEDULED MEDS PER EMAR. PATIENT WORK c PT MOBILTY THIS PM. PER PT 2 MAX ASSIST TO GET OOB AND BACK. PT RECOMMENDED HH SERVICES. VITAL SIGNS REVIEWED. IV TO R FOREARM AND POWERGLIDE TO DONALD SALINE LOCKED. FAMILY AT BEDSIDE. ARMANDO PATENT, DRAINING YELLOW URINE TO GRAVITY. CATHCARE DONE. Q2 TURN T/O SHIFT. CALL LIGHT IN REACH.
--- NOTE | 2022-07-03 17:51 | NUR ---
CALLED DR. PITTMAN TO NOTIFY PATIENT CONCERN REGARDING NICOTINE GUM. PATIENT REPORT, THE NICOTINE GUM IS STICKING TO HIS FALSE TEETH. PATIENT REQUEST TO CHANGED TO NICOTINE PATCH. RECEIVED ORDER FROM DR. PITTMAN TO GIVE NICOTINE PATCH 21 MG DAILY.
[2022-07-04 05:34] LABS: BASOPHILS ABSOLUTE AUTO 0.02 K/mm3 (0.00-0.23); BASOPHILS PERCENT AUTO 0 % (0-2); EOSINOPHILS ABSOLUTE AUTO 0.06 K/mm3 (0.00-0.68); EOSINOPHILS PERCENT AUTO 1 % (0-6); Hematocrit 36.2 % (37.0-53.0); Hemoglobin 11.6 g/dL (13.5-17.5); IMMATURE GRAN ABSOLUTE AUTO 0.01 K/mm3 (0.00-0.10); IMMATURE GRAN PERCENT AUTO 0 % (0-1); LYMPHOCYTES ABSOLUTE AUTO 1.56 K/mm3 (0.84-5.20); LYMPHOCYTES PERCENT AUTO 29 % (21-46); MONOCYTES ABSOLUTE AUTO 0.57 K/mm3 (0.16-1.47); MONOCYTES PERCENT AUTO 11 % (4-13); Mean Corpuscular HGB 27.9 pg (26.0-34.0); Mean Corpuscular Volume 87 fL (80-100); NEUTROPHILS PERCENT AUTO 58 % (41-73); Platelet Count 239 K/mm3 (150-400); RDW Coefficient Variation 14.9 % (11.7-14.2); RDW Standard Deviation 47.8 fL (35.1-46.3); Red Blood Cell Count 4.16 M/mm3 (4.30-5.90); White Blood Cell Count 5.32 K/mm3 (4.00-11.30)
--- NOTE | 2022-07-04 06:02 | NUR ---
SHIFT SUMMARY; NO ACUTE CHANGES OVERNIGHT. THE PT RESTED IN BED FOR THE ENTIRETY OF THE NIGHT. THE PT IS AXO X4, WITHDRAWN AFFECT. THE PT WORE HIS CPAP FOR THE ENTIRETY OF THE NIGHT WITH O2 SATS >94%. TELE IS IN PLACE, NSR 60/70'S. THE PT DENIES ANY PAIN, SOB, CHEST PAIN/PRESSURE OF N/V. CURRENTLY THE PT IS RESTING IN BED WITH THE BED IN THE LOWEST POSITION AND THE CALL LIGHT AT BEDSIDE. ARMANDO IS PATENT AND DRAINING TO GRAVITY. WILL REPORT TO ONCOMING RN.
[2022-07-04 06:40] LABS: Bun/Creatinine Ratio 33.3 (12.0-20.0); Calcium, Blood 9.2 mg/dL (8.5-10.1); Creatinine, Blood 0.6 mg/dL (0.60-1.20); Potassium, Blood 3.7 mmol/L (3.5-5.5)
--- NOTE | 2022-07-04 16:29 | NUR ---
SHIFT SUMMARY: NO NEW ACUTE CHANGES IN PATIENT CONDITION THIS SHIFT. PATIENT A&OX4. CALM, PLEASANT AND COOPERATIVE c CARE. USES CALL LIGHT APPROPRIATELY AND ABLE TO MAKE NEEDS KNOWN. PATIENT DENIES CP/PRESSURE, N/V, SOB. PATIENT ON RA c SPO2 RANGES 93-95% T/O SHIFT. PATIENT WAS ABLE TO GET OOB TODAY c 2 MAX ASSIST, USING GAITBELT AND FWW TRANSFERRED TO CHAIR. PATIENT TOLERATED SITTING UP IN THE RECLINER CHAIR c BLE'S ELEVATED ON PILLOWS FOR ABOUT SEVEN HRS. RECEIVED SCHEDULED MEDS PER EMAR. VITAL SIGNS REVIEWED. CALL LIGHT IN REACH.
--- NOTE | 2022-07-05 04:01 | NUR ---
SHIFT SUMMARY PATIENT HAD NO ACUTE CHANGES. AXOX 4 AND TWO MAX ASSIST FROM CHAIR TO BED W/FWW GB. POWERGLIDE DONALD AND PIV INTACT. CBG 204. ON CONTINUOUS PULSE OXIMETRY STATING MOSTLY 88-92%. USES CPAP AT NIGHT. MIDNIGHT PO LOPRESSOR 25 MG HELD FOR SBP < 120 PER PARAMETER. BP 109/69. DENIES CHEST PAIN, SOB, AND N/V. VSS/AFEBRILE. ENCHANCED PRECAUTIONS COVID-19+. ARMANDO PATENT AND DRAINING TO GRAVITY. COOPERATIVE WITH CARE. CALL LIGHT IN REACH. BED IN LOWEST POSITION. WILL CONTINUE TO MONITOR UNTIL DAY SHIFT NURSE ASSUMES CARE.
[2022-07-05 05:05] LABS: BASOPHILS ABSOLUTE AUTO 0.03 K/mm3 (0.00-0.23); BASOPHILS PERCENT AUTO 1 % (0-2); EOSINOPHILS ABSOLUTE AUTO 0.05 K/mm3 (0.00-0.68); EOSINOPHILS PERCENT AUTO 1 % (0-6); Hematocrit 38.1 % (37.0-53.0); IMMATURE GRAN ABSOLUTE AUTO 0.04 K/mm3 (0.00-0.10); IMMATURE GRAN PERCENT AUTO 1 % (0-1); LYMPHOCYTES ABSOLUTE AUTO 2.15 K/mm3 (0.84-5.20); LYMPHOCYTES PERCENT AUTO 39 % (21-46); MONOCYTES ABSOLUTE AUTO 0.59 K/mm3 (0.16-1.47); MONOCYTES PERCENT AUTO 11 % (4-13); Mean Corpuscular HGB 27.6 pg (26.0-34.0); Mean Corpuscular HGB Conc 31.5 g/dL (31.5-36.5); Mean Corpuscular Volume 88 fL (80-100); Mean Platelet Volume 9.2 fL (9.1-12.4); NEUTROPHILS ABSOLUTE AUTO 2.61 K/mm3 (1.96-9.15); NEUTROPHILS PERCENT AUTO 48 % (41-73); Platelet Count 271 K/mm3 (150-400); RDW Coefficient Variation 14.8 % (11.7-14.2); RDW Standard Deviation 47.5 fL (35.1-46.3); Red Blood Cell Count 4.35 M/mm3 (4.30-5.90); White Blood Cell Count 5.47 K/mm3 (4.00-11.30)
[2022-07-05 05:28] LABS: Bun/Creatinine Ratio 33.4 (12.0-20.0); Calcium, Blood 9.2 mg/dL (8.5-10.1); Creatinine, Blood 0.66 mg/dL (0.60-1.20); Potassium, Blood 3.9 mmol/L (3.5-5.5)
--- NOTE | 2022-07-05 18:31 | NUR ---
SHIFT SUMMARY: NO NEW ACUTE CHANGES IN PATIENT CONDITION THIS SHIFT. PATIENT CONTINUES TO BE DOING BETTER. PATIENT REPORTS FEELING BETTER AND READY TO GO HOME. PATIENT A&OX4. CALM, PLEASANT, AND COOPERATIVE c CARE. USES CALL LIGHT APPRIOPRIATELY AND ABLE TO MAKE NEEDS KNOWN. PATIENT ON RA c SPO2 RANGES 91-99% T/O SHIFT. WEARS CPAP AT NIGHT c BLEED IN O2. PATIENT STILL ON ENHANCED ISOLATION FOR COVID POSITIVE. PATIENT SITTING UP IN THE RECLINER CHAIR FOR ABOUT 7 HRS THIS SHIFT AND TOLERATED WELL. DENIES GENERALIZED PAIN, SOB, CP/PRESSURE, N/V. VITAL SIGNS REVIEWED. RECEIVED SCHEDULED MEDS THIS SHIFT. ARMANDO PATENT DRAINING YELLOW URINE TO GRAVITY. IV TO R FOREARM, POWERGLIDE TO DONALD SALINE LOCKED. POSSIBLE DC TO [facility] TOMORROW. CALL LIGHT IN REACH.
--- NOTE | 2022-07-06 04:05 | NUR ---
SHIFT SUMMARY PATIENT HAD NO ACUTE CHANGES. AXOX 4 AND TWO ASSIST FROM RECLINER TO BED W/FWW. WEARS CPAP AT NIGHT STATING >90%. ON ROOM AIR. POWERGLIDE AND PIV REMAIN INTACT. CBG 150. DENIES PAIN, SOB, AND N/V. VSS/AFEBRILE. HELD MIDNIGHT PO LOPRESSOR FOR HR <60 @ 57. ENHANCED PRECAUTIONS COVID-19+. COOPERATIVE WITH CARE. CALL LIGHT IN REACH. BED IN LOWEST POSITION. WILL CONTINUE TO MONITOR UNTIL DAY SHIFT NURSE ASSUMES CARE.
[2022-07-06] MEDS ORDERED: DECADRON6 M1 PO (12:27)
--- NOTE | 2022-07-06 16:46 | NUR ---
PT DISCHARGED BACK HOME TO [facility]. MEDICATION LIST FAXED TO [facility] AND HARD COPY OF MEDICATION LIST SENT WITH PT WITH INSTRUCTIONS TO GIVE TO [facility]. DISCHARGE INSTRUCTIONS EXPLAINED WITH PT AND PT'S MOTHER. PT VERBALIZED NO QUESTIONS OR CONCERNS. IV AND POWER GLIDE DC'D. PT TOLERATED WELL AND GUAZE AND COBAN PLACED. PT HELPED TO DRESS AND NEW ATTENS PLACED. BELONGINGS SENT HOME WITH PT. PT TAKEN BY WHEELCHAIR TO WAITING VEHICLE.
== END 2022-07-06 16:22 | disposition home health service (06) | DRG 177 ==
LOC: ER 11:55 → PCU 18:45 → MEDS 07-02 23:28
PROVIDERS: Emergency Medicine; Student in an Organized Health Care Education/Training Program; ADMIT Internal Medicine
PROC: XW033E5 Introduction of Remdesivir Anti-infective into Peripheral Vein, Percutaneous Approach, New Technology Group 5 (ICD-10-PCS; principal; 2022-07-01)
PROC: 3E0DX3Z Introduction of Anti-inflammatory into Mouth and Pharynx, External Approach (ICD-10-PCS; 2022-07-01)
PROC: 5A09457 Assistance with Respiratory Ventilation, 24-96 Consecutive Hours, Continuous Positive Airway Pressure (ICD-10-PCS; 2022-07-01)
DX: U07.1 COVID-19 (principal); J12.82 Pneumonia due to coronavirus disease 2019; J96.01 Acute respiratory failure with hypoxia; Z68.42 Body mass index [BMI] 45.0-49.9, adult; E11.9 Type 2 diabetes mellitus without complications; E78.5 Hyperlipidemia, unspecified; E66.01 Morbid (severe) obesity due to excess calories; G47.33 Obstructive sleep apnea (adult) (pediatric); G40.909 Epilepsy, unspecified, not intractable, without status epilepticus; F99 Mental disorder, not otherwise specified; F25.9 Schizoaffective disorder, unspecified; G20 Parkinson's disease; F03.90 Unspecified dementia, unspecified severity, without behavioral disturbance, psychotic disturbance, mood disturbance, and anxiety; I50.9 Heart failure, unspecified; I11.0 Hypertensive heart disease with heart failure; E87.6 Hypokalemia; M54.9 Dorsalgia, unspecified; G89.29 Other chronic pain; Z79.4 Long term (current) use of insulin; Z79.899 Other long term (current) drug therapy; Z99.81 Dependence on supplemental oxygen; Z79.01 Long term (current) use of anticoagulants; Z79.84 Long term (current) use of oral hypoglycemic drugs; Z86.711 Personal history of pulmonary embolism; Z87.891 Personal history of nicotine dependence; Z79.811 Long term (current) use of aromatase inhibitors; Z79.51 Long term (current) use of inhaled steroids; Z88.2 Allergy status to sulfonamides; Z88.8 Allergy status to other drugs, medicaments and biological substances
CPT/HCPCS: 0241U; 36415; 51701; 71045; 71260; 80048; 80053; 82248; 82803; 82947; 83605; 83735; 84100; 84145; 85025; 85610; 85730; 87040; 93005; 93010; 94660; 94762; 96365-59; 96366; 96367; 96368; 96375-59; 97110; 97162; 97530; 99285-25; A9270; C1751; J0248; J0295; J0360; J0456; J0696; J1815; J1940; J3480; J7030; J7050; Q9967

== ENCOUNTER 2022-07-30 23:07 | Inpatient (IN) | payer OTHER ==
[~2022-07-30] VITALS: Ht 172.7 cm; Wt 146.6 kg
[~2022-07-30 23:07] MED LIST changes: +DECADRON6 M1 PO; +INVEGA SUS IM; +LOPE2C PO; +MAGNESIUM OXID500 MG PO; +PALI6TA PO; +TRAZ150T57 PO; +VITAMIN D325 MC3 PO; +ZYRTEC10 M2 PO; +Zinc Gluconate100 MG PO
[2022-07-30 23:26] LABS: BASOPHILS ABSOLUTE AUTO 0.03 K/mm3 (0.00-0.23); BASOPHILS PERCENT AUTO 0 % (0-2); EOSINOPHILS ABSOLUTE AUTO 0.01 K/mm3 (0.00-0.68); EOSINOPHILS PERCENT AUTO 0 % (0-6); Hematocrit 36.4 % (37.0-53.0); Hemoglobin 11.3 g/dL (13.5-17.5); IMMATURE GRAN ABSOLUTE AUTO 0.13 K/mm3 (0.00-0.10); IMMATURE GRAN PERCENT AUTO 1 % (0-1); LYMPHOCYTES ABSOLUTE AUTO 0.91 K/mm3 (0.84-5.20); LYMPHOCYTES PERCENT AUTO 8 % (21-46); MONOCYTES ABSOLUTE AUTO 0.96 K/mm3 (0.16-1.47); MONOCYTES PERCENT AUTO 8 % (4-13); Mean Corpuscular HGB 27.7 pg (26.0-34.0); Mean Corpuscular Volume 89 fL (80-100); Mean Platelet Volume 8.5 fL (9.1-12.4); NEUTROPHILS ABSOLUTE AUTO 9.75 K/mm3 (1.96-9.15); NEUTROPHILS PERCENT AUTO 83 % (41-73); NRBC ABSOLUTE 0.04 K/mm3 (0.00-0.02); NRBC Auto 0.3 /100 WBC (0.0-0.2); Platelet Count 316 K/mm3 (150-400); RDW Coefficient Variation 15.2 % (11.7-14.2); RDW Standard Deviation 49.5 fL (35.1-46.3); Red Blood Cell Count 4.08 M/mm3 (4.30-5.90); White Blood Cell Count 11.79 K/mm3 (4.00-11.30)
[2022-07-30 23:26] LABS: PCO2 Arterial 48.5 mmHg (35-45); PO2 Arterial 124 mmHg (80-100); pH Blood Arterial 7.37 (7.35-7.45)
[2022-07-30 23:44] LABS: Albumin, Blood 2.7 g/dL (3.4-5.0); Albumin/Globulin Ratio 0.6 (0.8-1.8); Bilirubin, Total 0.2 mg/dL (0.1-1.0); Bun/Creatinine Ratio 25.7 (12.0-20.0); Calcium, Blood 8.9 mg/dL (8.5-10.1); Creatinine, Blood 0.7 mg/dL (0.60-1.20); Globulin, Blood 4.2 g/dL (2.2-4.0); Potassium, Blood 4.1 mmol/L (3.5-5.5); Total Protein, Blood 6.9 g/dL (6.4-8.2)
[2022-07-31 02:44] LABS: BASOPHILS ABSOLUTE AUTO 0.02 K/mm3 (0.00-0.23); BASOPHILS PERCENT AUTO 0 % (0-2); EOSINOPHILS PERCENT AUTO 0 % (0-6); Hematocrit 33.8 % (37.0-53.0); Hemoglobin 10.6 g/dL (13.5-17.5); IMMATURE GRAN PERCENT AUTO 1 % (0-1); LYMPHOCYTES ABSOLUTE AUTO 0.95 K/mm3 (0.84-5.20); LYMPHOCYTES PERCENT AUTO 9 % (21-46); MONOCYTES ABSOLUTE AUTO 0.89 K/mm3 (0.16-1.47); MONOCYTES PERCENT AUTO 9 % (4-13); Mean Corpuscular HGB 27.6 pg (26.0-34.0); Mean Corpuscular HGB Conc 31.4 g/dL (31.5-36.5); Mean Corpuscular Volume 88 fL (80-100); Mean Platelet Volume 8.3 fL (9.1-12.4); NEUTROPHILS ABSOLUTE AUTO 8.26 K/mm3 (1.96-9.15); NEUTROPHILS PERCENT AUTO 81 % (41-73); Platelet Count 293 K/mm3 (150-400); RDW Coefficient Variation 15.3 % (11.7-14.2); RDW Standard Deviation 48.9 fL (35.1-46.3); Red Blood Cell Count 3.84 M/mm3 (4.30-5.90); White Blood Cell Count 10.22 K/mm3 (4.00-11.30)
[2022-07-31 03:02] LABS: Albumin, Blood 2.6 g/dL (3.4-5.0); Albumin/Globulin Ratio 0.6 (0.8-1.8); Bilirubin, Total 0.2 mg/dL (0.1-1.0); Bun/Creatinine Ratio 24.5 (12.0-20.0); Calcium, Blood 8.8 mg/dL (8.5-10.1); Creatinine, Blood 0.69 mg/dL (0.60-1.20); Magnesium, Blood 1.9 mg/dL (1.6-2.4); Potassium, Blood 4.5 mmol/L (3.5-5.5); Total Protein, Blood 6.6 g/dL (6.4-8.2)
[2022-07-31] MEDS ORDERED: B-12 COMPL1000 MCG/2 IM (03:28)
[2022-07-31] MEDS ORDERED: ENSURE PLUS HI237 ML PO (03:28)
[2022-07-31] MEDS ORDERED: LACT PO (03:30)
[2022-07-31] MEDS ORDERED: NYAMYC1513 TOP (03:31)
[2022-07-31] MEDS ORDERED: METAMUCIL POWD575 GM PO (03:32)
[2022-07-31] MEDS ORDERED: BISA10S PR (03:33)
[2022-07-31] MEDS ORDERED: CALAMINE LOTIO177 ML TOP (03:36)
[2022-07-31] MEDS ORDERED: ALBU2.5V5 INH (03:36)
[2022-07-31] MEDS ORDERED: MIRALAX1714 PO (03:37)
[2022-07-31] MEDS ORDERED: ALMACONE SUSPE355 ML PO (03:39)
[2022-07-31] MEDS ORDERED: NICOTINE LOZENGE2 MG MM (03:40)
[2022-07-31] MEDS ORDERED: DULCOLAX400 MG/5 M PO (03:40)
[2022-07-31] MEDS ORDERED: PROC5 PO (03:41)
[2022-07-31 05:11] LABS: Source, Urine Foley catheter
[2022-07-31 05:15] LABS: Appearance, Urine Hazy (Clear); Bilirubin, Urine Neg (Neg); Blood, Urine 2+ (Neg); Color, Urine Yellow (P-Yellow); Glucose Qualitative, Urine Neg (Neg); Ketones, Urine Neg (Neg); Leukocyte Esterase, Urine 1+ (Neg); Nitrite, Urine Pos (Neg); Protein, Urine 2+ (Neg); Specific Gravity, Urine 1.015 (1.003-1.022); Urobilinogen, Urine NORM (Normal)
[2022-07-31 05:31] LABS: Bacteria Many /hpf; Squamous Epithelial Cells Few /hpf (Few); White Blood Cells, Urine 25-50 /hpf (0-5)
--- NOTE | 2022-07-31 05:44 | NUR ---
SHIFT SUMMARY Pt admitted to the unit around 021. He arrived via gurney. Transferred using sliding sheet. Mother at bedside. Mother is POA and gave majority of the history. Pt from [facility], was found pale with o2 Sat's in the 40's. He normally wears CPAP and did not have it on and was slipped out of bed. Arrived on 6L of 02 at which had to be increased to 15L [place] for transfer. AOx2, knows self and family. Disoriented and confused. Hx: schizoaffective disorder, bipolar and dementia. Withdrawn. Labile. Follows commands. Did answer some questions. LS diminished in bases, states cough with occasional productive secretions. Mother states he is still getting over Covid that was back on July 01. RT placed CPAP at 9/40% which was later increased to 50%. Resp shallow, tachypnea. Sinus rate 70-90's, occasional PVC. Obese with moist skin folds, breakdown, pics in chart, cleansed and powder applied. Stopped fluid bolus, BNP 230, pitting BLE edema. Mother states weight is at least 10lbs more than usual. Small BM down in ED. HX: Constipation. Saavedra patent khris urine. Critical lactic which is decreased to 2.4. Bilateral tremors related to Parkinsonism. Pt resting since arrival to floor, occasionally wakes up confused but easily reoriented. Call light is in reach and mother is staying at bedside.
--- NOTE | 2022-07-31 12:26 | NUR ---
AM NOTE: PATIENT ALERT AND ORIENTED X2-3. MILD DEMENTIA. WITHDRAWN AND LABILE. ANSWERING SIMPLE QUESTIONS. FOLLOWING COMMANDS. WEAKNESS NOTED THROUGHOUT. MOTHER AT BEDSIDE HELPING WITH CARES. DENIES N/T. PERRLA. ON AIRVO AT 60L AND 50% FIO2. LUNGS SOUNDING CLEAR AND DIM IN BASES. NO COUGH NOTED. DENIES SOB. SHALLOW BREATHING. RR 18-28. VERY TIRED AND SLEEPY. TELE SHOWING SR WITH HR 70-90'S. BP ON SOFTER SIDE. BOLUS GIVEN THIS MORNING. BP IMPROVED. PPP. EDEMA NOTED TO BLE, ABDOMINA AND BUE. DENIES CHEST PAIN/PRESSURE/PALPIATIONS. PATIENT DENIES PAIN OVERALL. ARMANDO CATH IN PLACE DRAINING CLEAR/KRYSTAL COLORED URINE TO GRAVITY. ATTEMPT TO HAVE BOWEL MOVEMENT ON BEDPAN THIS MORNING. GROIN/PANUS/BREAST FOLDS RED, CLEANED AND POWDER APPLIED. SPEECH THERAPY ORDERS PLACED THIS AM DUE TO THIS RN'S CONCERN WITH COUGHING POST DRINKING WATER. SPEECH THERAPY ORDERS IN PLACE. ACHS BLOOD SUGARS. Q2 TURNING. PLAN FOR BED BATH THIS AFTERNOON.
--- NOTE | 2022-07-31 15:58 | NUR ---
ECHO BEING DONE AT THIS TIME.
--- NOTE | 2022-07-31 16:11 | NUR ---
THIS RN DISCUSSED SOFT BLOOD PRESSURES WITH DR. SKAGGS. PLAN TO HOLD 1800 LASIX DOSE. NO OTHER ORDERS AT THIS TIME.
--- NOTE | 2022-07-31 18:25 | NUR ---
SHIFT SUMMARY: NO ACUTE CHANGES THROUGHOUT THE DAY. NEURO REMAINS UNCHANGED. ON AIVRO AT 60L AND 40-50% FIO2. RR 18-28. SHALLOW BREATHING. LUNGS SOUNDING CLEAR AND DIM. TELE CONTINUES TO SHOW SR WITH RH 70-90'S. BP SOFT WITH SBP IN THE 90'S-110'S. DENIES PAIN THROUGHOUT SHIFT. ECHO COMPLETED AND PENDING. LARGE BOWEL MOVEMENT WHEN UP TO BSC WITH PHYSICAL THERAPY. Q2 TURNS. ARMANDO DRAINED 1100ML THIS SHIFT. EATING AND DRINKING WNL. ABLE TO CALL AND MAKE NEEDS KNOWN. MOM AT BEDSIDE AND UPDATED THROUGHOUT THE DAY.
[2022-08-01 04:40] LABS: BASOPHILS ABSOLUTE AUTO 0.03 K/mm3 (0.00-0.23); BASOPHILS PERCENT AUTO 0 % (0-2); EOSINOPHILS ABSOLUTE AUTO 0.02 K/mm3 (0.00-0.68); EOSINOPHILS PERCENT AUTO 0 % (0-6); Hematocrit 34.2 % (37.0-53.0); Hemoglobin 10.8 g/dL (13.5-17.5); IMMATURE GRAN ABSOLUTE AUTO 0.05 K/mm3 (0.00-0.10); IMMATURE GRAN PERCENT AUTO 1 % (0-1); LYMPHOCYTES ABSOLUTE AUTO 1.48 K/mm3 (0.84-5.20); LYMPHOCYTES PERCENT AUTO 20 % (21-46); MONOCYTES ABSOLUTE AUTO 0.97 K/mm3 (0.16-1.47); MONOCYTES PERCENT AUTO 13 % (4-13); Mean Corpuscular HGB 27.8 pg (26.0-34.0); Mean Corpuscular HGB Conc 31.6 g/dL (31.5-36.5); Mean Corpuscular Volume 88 fL (80-100); Mean Platelet Volume 8.6 fL (9.1-12.4); NEUTROPHILS ABSOLUTE AUTO 5.01 K/mm3 (1.96-9.15); NEUTROPHILS PERCENT AUTO 66 % (41-73); Platelet Count 279 K/mm3 (150-400); RDW Coefficient Variation 15.5 % (11.7-14.2); RDW Standard Deviation 49.6 fL (35.1-46.3); Red Blood Cell Count 3.88 M/mm3 (4.30-5.90); White Blood Cell Count 7.56 K/mm3 (4.00-11.30)
[2022-08-01 04:55] LABS: Bun/Creatinine Ratio 15.9 (12.0-20.0); Calcium, Blood 9.1 mg/dL (8.5-10.1); Creatinine, Blood 0.69 mg/dL (0.60-1.20); Potassium, Blood 4.6 mmol/L (3.5-5.5)
--- NOTE | 2022-08-01 06:51 | NUR ---
WARD ASSISTANT SUMMARY ASSUMED CARE OF THE PT AT 1900. HE IS ALERT AND ORIENTED X2-3. COOPERATIVE WITH INSTRUCTIONS. PT HAD SOME INCREASING ANXIETY AT HS AND REPORTED "HEARING A VOICE" THAT UPSET HIM. MOTHER AT BS INCREASINGLY ANXIOUS. PT REPORTED NEEDING HIS PO HALDOL AND IMPROVED AFTER. PT ON AIRVO WHEN AWAKE BUT RESTING ON CPAP DURING SLEEP WITH IMPROVEMENT IN HIS TACHYCARDIA. HR RANGING FROM 100 TO 130 WHEN ANXIOUS. 94% CURRENTLY ON CPAP. PT RELUCTANT TO CHANGE POSITION, ALWAYS LEANING TO HIS RIGHT. ARMANDO IN PLACE AND PATENT.
--- NOTE | 2022-08-01 09:57 | NUR ---
AM NOTE: PATIENT VERY TIRED AND DIFFICULT TO AROSE COMPARED TO YESTERDAY. ANSWERING SIMPLE QUESTIONS. DENIES N/T. PERRLA. SKIN OVERALL PALE WITH REDNESS AROUND EYES. YEAST BUILD UP AND REDNESS/BREAKDOWN TO PANUS/GROIN/BREAST FOLDS. CLEANED AND AM POWDER APPLIED. ON 40L AND 40% FIO2 SATING MID 90'S. LUNG SOUNDS CLEAR AND DIM IN BASES. SHALLOW BREATHS. RR 24-30 THIS AM. OCCASIONAL NONPRODUCTIVE COUGH. TELE SHOWING SINUS RHYTHM WITH PVC'S. HR 80-100'S. BP STABLE. EDEMA NOTED TO BLE/BUE. PPP. DENIES ABDOMINAL PAIN/NAUSEA. EATING SMALL AMOUNTS AND DRINKING WATER. SPEECH THERAPY ORDERS IN PLACE. UPPER AND LOWER DENTURES. ARMANDO CATH IN PLACE DRAINING CLEAR/YELLOW URINE. CATH CARE COMPLETED. URINE CULTURE RESULTED AND DR. CORONA CALLED TO UPDATE. NO NEW ORDERS FOR THIS RN TO PLACE. PATIENT PLACED IN CONTACT ISO FOR ESBL. MOM AT BEDSIDE AND UPDATED ON PLAN OF CARE. CALL LIGHT IN REACH.
[2022-08-01 13:39] LABS: Base Excess Venous 6.6 mmol/L; Bicarbonate Venous 29.6 mmol/L (24.0-30.0); PCO2 Venous 47.4 mmHg (38-42); pH Blood Venous 7.42 (7.34-7.37)
--- NOTE | 2022-08-01 15:44 | NUR ---
ADMINISTRATIVE SUPPORT SPECIALIST NOTIFIED THIS RN THAT PATIENT HAD 6 RUN BEAT OF VTACH. PATIENT SLEEPING IN BED WITH CPAP IN PLACE. CALL PLACED TO DR. CORONA TO UPDATE ON TELE EVENT. NO NEW ORDERS FOR THIS RN TO PLACE.
--- NOTE | 2022-08-01 18:01 | NUR ---
SHIFT SUMMARY: SEE PREVIOUS NOTES FOR UPDATES. NEURO REMAINS UNCHANGED. PATIENT WAKES TO CARES AND MEAL TIMES. UP IN RECLINER FOR 2 HOURS THIS AFTERNOON. STANDING AND WALKING TO AND FROM RECLINER. DENIES OVERALL PAIN. ABX INFUSED. VITALS REMAIN STABLE. SEE PREVIOUS NOTE FOR TELE EVENT. MOM AT BEDSIDE. PATIENT EATING DINNER AT THIS TIME. VERY PLEASENT AND COOPERATIVE THROUGHOUT THE SHIFT. ABLE TO CALL AND MAKE NEEDS KNOWN. Q2 TURNING AND NEEDED.
[2022-08-02 06:01] LABS: BASOPHILS ABSOLUTE AUTO 0.03 K/mm3 (0.00-0.23); BASOPHILS PERCENT AUTO 1 % (0-2); EOSINOPHILS ABSOLUTE AUTO 0.08 K/mm3 (0.00-0.68); EOSINOPHILS PERCENT AUTO 2 % (0-6); Hematocrit 32.1 % (37.0-53.0); Hemoglobin 10.1 g/dL (13.5-17.5); IMMATURE GRAN ABSOLUTE AUTO 0.03 K/mm3 (0.00-0.10); IMMATURE GRAN PERCENT AUTO 1 % (0-1); LYMPHOCYTES ABSOLUTE AUTO 1.59 K/mm3 (0.84-5.20); LYMPHOCYTES PERCENT AUTO 29 % (21-46); MONOCYTES ABSOLUTE AUTO 0.71 K/mm3 (0.16-1.47); MONOCYTES PERCENT AUTO 13 % (4-13); Mean Corpuscular HGB 27.5 pg (26.0-34.0); Mean Corpuscular HGB Conc 31.5 g/dL (31.5-36.5); Mean Corpuscular Volume 88 fL (80-100); Mean Platelet Volume 8.4 fL (9.1-12.4); NEUTROPHILS ABSOLUTE AUTO 3.01 K/mm3 (1.96-9.15); NEUTROPHILS PERCENT AUTO 55 % (41-73); Platelet Count 255 K/mm3 (150-400); RDW Coefficient Variation 15.4 % (11.7-14.2); RDW Standard Deviation 49.1 fL (35.1-46.3); Red Blood Cell Count 3.67 M/mm3 (4.30-5.90); White Blood Cell Count 5.45 K/mm3 (4.00-11.30)
[2022-08-02 06:24] LABS: Albumin, Blood 2.1 g/dL (3.4-5.0); Albumin/Globulin Ratio 0.5 (0.8-1.8); Bilirubin, Total 0.5 mg/dL (0.1-1.0); Calcium, Blood 8.9 mg/dL (8.5-10.1); Creatinine, Blood 0.67 mg/dL (0.60-1.20); Globulin, Blood 4.2 g/dL (2.2-4.0); Potassium, Blood 4.1 mmol/L (3.5-5.5); Total Protein, Blood 6.3 g/dL (6.4-8.2)
--- NOTE | 2022-08-02 07:09 | NUR ---
FOREIGN COLLECTION CLERK SUMMARY ASSUMED CARE OF THE PT AT 1900. HE IS SLIGHTLY CONFUSED TODAY ABOUT WHERE HE IS BUT OTHERWISE FOLLOWING DIRECTIONS. PT REQUESTED TO GO TO BED EARLIER THIS SHIFT SO WAS MEDICATED AND SLEPT THROUGHOUT THE NIGHT. BP SOFT BUT STABLE. HR IMPROVED WHILE SLEEPING ON CPAP TO THE 80S AND 90S. ARMANDO IN PLACE AND PATENT. SATURATIONS REMAIN >92% ON CPAP WHILE SLEEPING. NO COMPLAINTS OF PAIN. IV ABX THIS SHIFT.
--- NOTE | 2022-08-02 09:22 | NUR ---
AM NOTE Pt appears to be sleeping on bipap, wakes to verbal stimuli and remains awake. Pt oriented x2, states its 2003. Pt denies pain, chest pain/pressure, sob, nausea, dizziness and numb/tingling. Spo2 >90% on airvo 40l 40%; cpap while sleeping. Tele sinus, bp stable. Abd distended, nontender, with hypoactive bt. Saavedra in place, patent and draining. Other vss. No other acute changes noted. Will continue to monitor.
--- NOTE | 2022-08-02 18:40 | NUR ---
Shift Summary Pt titrated from airvo 40l, 40% this am to 4l o2 via nc this afternoon, spo2 92-94%. Pt mother expresses concern stating as an outpatient his spo2 should stay above 93%, notified Dr Anne, plans to discuss concerns with pt's mother tomorrow. Pt 1 person assist up to chair this am, up for lunch and most of afternoon. Other vss. No other acute changes noted. Will continue to monitor.
[2022-08-03 06:13] LABS: Bun/Creatinine Ratio 25.5 (12.0-20.0); Calcium, Blood 9.1 mg/dL (8.5-10.1); Creatinine, Blood 0.59 mg/dL (0.60-1.20); Potassium, Blood 4.2 mmol/L (3.5-5.5)
--- NOTE | 2022-08-03 07:08 | NUR ---
ALUMNI RELATIONS COORDINATOR SUMMARY ASSUMED CARE OF THE PT AT 1900. HE IS ALERT AND ORIENTED TO SELF, FAMILY, AND SURROUNDINGS. HE HAS BEEN PLEASANT AND FOLLOWING DIRECTIONS, THOUGH APPEARS TO HAVE SOME MOTIVATION ISSUES WHEN REPOSITIONING IN BED. PT HR IMPROVED WHEN SLEEPING ON THE CPAP AND CURRENTLY IN THE 60S SINUS. SATURATIONS REMAIN IN HIGH 90S ON CPAP. BP SOFT BUT STABLE. NO ACUTE EVENTS.
--- NOTE | 2022-08-03 09:04 | NUR ---
AM NOTE PT APPEARS TO BE SLEEPING, WAKES EASILY. ORIENTED TO SELF AND PLACE. PT RESTING IN BED, UP WITH 1-2 PERSON ASSIST WITH WALKER TO CHAIR. PT DENIES PAIN, CHEST PAIN, SOB, NAUSES, DIZINESS AND NUMB/TINGLING. TELE SINUS 70'S, BP STABLE. PT INITIALLY ON CPAP 9, 40%, TRANSFERED TO 4L O2 VIA NC, LS DIM IN BASES. ABD DISTENDED, NONTENDER, HYPOACTIVE BT, NO BM SINCE 07/31. ARMANDO IN PLACE. PATENT AND DRAINING. OTHER VSS. NO OTHER ACUTE CHANGES NOTED. WILL CONTINUE TO MONITOR.
--- NOTE | 2022-08-03 16:07 | NUR ---
Patient is sitting on a chair and alert. Patient tells me about his family, his Rastafari ariane and his double pneumonia. He talks about how much [employer] [facility] [employer] means to him and he becomes tearful as he shares. He says that he is ready to go home to [facility] when the time comes and is happy to help bring light into the world by being kind and bringing good news to those around him. He also talks about his appreciation for his mother for all the kindness she has shown him even while he is in [facility]. He talks about one resident who is mean to him but he tries to ignore him. I listen empathically, normalize his experience, remind him of his value and worth and provide gentle marriage and family counselor and prayer. Patient responded well and showed signs of being encouraged in his value and his ariane. I will continue to remain available to patient and fmaily.
--- NOTE | 2022-08-03 18:18 | NUR ---
Shift Summary Pt has been up in chair for majoirty of shift. titrated o2 to 2l o2 via nc. Other vss. No other acute changes noted. Will continue to monitor.
[2022-08-04 04:48] LABS: BASOPHILS ABSOLUTE AUTO 0.04 K/mm3 (0.00-0.23); BASOPHILS PERCENT AUTO 1 % (0-2); EOSINOPHILS ABSOLUTE AUTO 0.17 K/mm3 (0.00-0.68); EOSINOPHILS PERCENT AUTO 3 % (0-6); Hemoglobin 9.9 g/dL (13.5-17.5); IMMATURE GRAN ABSOLUTE AUTO 0.04 K/mm3 (0.00-0.10); IMMATURE GRAN PERCENT AUTO 1 % (0-1); LYMPHOCYTES ABSOLUTE AUTO 2.01 K/mm3 (0.84-5.20); LYMPHOCYTES PERCENT AUTO 38 % (21-46); MONOCYTES ABSOLUTE AUTO 0.58 K/mm3 (0.16-1.47); MONOCYTES PERCENT AUTO 11 % (4-13); Mean Corpuscular HGB Conc 30.9 g/dL (31.5-36.5); Mean Corpuscular Volume 87 fL (80-100); Mean Platelet Volume 8.7 fL (9.1-12.4); NEUTROPHILS ABSOLUTE AUTO 2.48 K/mm3 (1.96-9.15); NEUTROPHILS PERCENT AUTO 47 % (41-73); Platelet Count 312 K/mm3 (150-400); RDW Standard Deviation 48.2 fL (35.1-46.3); Red Blood Cell Count 3.66 M/mm3 (4.30-5.90); White Blood Cell Count 5.32 K/mm3 (4.00-11.30)
--- NOTE | 2022-08-04 04:49 | NUR ---
SHIFT SUMMARY A/Ox3-4 AND IS COOPERATIVE WITH CARE PROVIDED BY STAFF. ABLE TO ANSWER QUESTIONS APPROPRIATLEY AND ABLE TO MAKE NEEDS KNOWN. CAN HAVE EPISODES OF INTERMITTENT CONFUSION/ISSUES WITH SHORT TERM MEMORY, BUT PT HAS HX OF DEMENTIA AT HIS BASELINE. NO ACUTE EVENTS OVERNIGHT FOR PT WAS ABLE TO GET A DECENT AMOUNT OF SLEEP. MAINTAINS SPO2 >92% ON 4L VIA HiFLOW NC. SOB NOTED WITH EXERTION AND PT REFUSED TO USE CPAP LAST NIGHT. CARDIAC HARRIS, REMAINED SR 70-80'S WITH NO CP OR PRESSURE REPORTED T/O THE NIGHT. BP REMAINS STABLE. CONTINUES TO BE INCONTIINENT/CONTINENT OF URINE, ATTENDS CHANGED PRN. PT REPOSTIONED Q2 HRS ORDERD. NO NEW ORDERS AT THIS TIME, WILL REPORT TO ONCOMING RN. MIRTHA SOLANO T/O THE SHIFT
[2022-08-04 05:07] LABS: Bun/Creatinine Ratio 31.7 (12.0-20.0); Calcium, Blood 8.9 mg/dL (8.5-10.1); Creatinine, Blood 0.57 mg/dL (0.60-1.20); Potassium, Blood 4.2 mmol/L (3.5-5.5)
--- NOTE | 2022-08-04 15:40 | NUR ---
pt arrived from u, report obtained from Radha CROCKETT, pt tx via wheelchair, is a one person assist with walker, family member with him, states he's feeling much better and will be going home in the next few days. call light in reach.
--- NOTE | 2022-08-04 15:51 | NUR ---
Transfer note Pt alert, and oriented X2-3, pleasant and cooperative with care. Pt up in chair for majoirty of shift. Pt denies pain, chest pain/pressure, sob, nausea, dizziness and numb/tingling. SPo2>90% on 2l o2 via nc, titrated to 1l o2 via nc. Tele sinus, bp soft but stable. Abd distended, nontender, hypoactive bt, pt had bm during shift. Other vss. No other acute changes noted. Pt transfered to room 338 at approx 1524.
--- NOTE | 2022-08-04 18:36 | NUR ---
pt doing well, mom at bedside with him, she will stay the night with him as he can escalate quickly and she is calming to him. no acute changes this shift, call light in reach.
--- NOTE | 2022-08-05 02:06 | NUR ---
SHIFT SUMMARY NOC PT A/O X 3-4. CONFUSED AT TIMES. PLESANT AND COOPERATIVE WITH CARE. PT ON O2 1.5L/NC WITH BIOX WITH SPO2 >94%. PT ON TELE RUNNING SINUS RHYTHM HR 71 BPM. PT MOTHER IS AT BEDSIDE WITH PT BECAUSE PT CAN ESCALATE QUICKLY REPORTED DAY SHIFT, AND SHE CAN CALM HIM. PT PLAN IS POSSIBLE DC BACK TO [facility] TODAY. PT IS CURRENTLY RESTING WITH CPAP IN PLACE, BED IN LOWEST POSITION, AND CALL LIGHT WITHIN REACH.
[2022-08-05 09:09] LABS: Bun/Creatinine Ratio 28.3 (12.0-20.0); Calcium, Blood 9.5 mg/dL (8.5-10.1); Creatinine, Blood 0.57 mg/dL (0.60-1.20)
--- NOTE | 2022-08-05 15:50 | NUR ---
PATIENT UP IN CHAIR MOST OF DAY, TRANSFERS WELL TO COMMODE 1 PERSON ASSIST, NO COMPLAINTS AT THIST TIME, CALLS APPROPRIATELY, CALL LIGHT IN REACH. AOX3 CONFUSED AT SITUATION AT TIMES. APPETITE GOOD. WILL CONTINUE TO MONITOR AND TREAT PER EMAR.
--- NOTE | 2022-08-06 04:34 | NUR ---
SHIFT SUMMARY PATIENT HAD NO ACUTE CHANGES. AXOX 3 AND ONE ASSIST TO BSC. USES URINAL AT BEDSIDE. PIVS REMAIN INTACT. IV ABX INFUSED. CBG 167. TELE MONITOR NSR 89. ON 2L O2 NC BASELINE. COOPERATIVE WITH CARE. SLEPT MOST OF SHIFT. CALL LIGHT IN REACH. BED IN LOWEST POSITION. WILL CONTINUE TO MONITOR UNTIL DAY SHIFT NURSE ASSUMES CARE.
[2022-08-06] MEDS ORDERED: TORSE20 (13:29)
--- NOTE | 2022-08-06 15:01 | NUR ---
DISCHARGE SUMMARY PATIENT AOX3 TODAY, DENIES SOB/CHEST PAIN OR URNIARY ISSUES. PATIENT EDUCATION PACKET GIVEN, IVS REMOVED. PATIENT DISCHARGED TO HOME/[facility], WHEELED TO [facility] BY FALL INTERN AND MOTHER RECIEVED PATIENT AT 1435. DC PAPERWORK FAXED TO [facility] PER FACILITY REQUEST.
--- NOTE | 2022-08-06 16:40 | NUR ---
THIS TABLET TECHNICIAN HAS REVIEWED AND AGREES WITH ALL NOTES AND ASSESSMENTS BY KEIRA ALFREDO.
== END 2022-08-06 14:34 | disposition home or self-care (01) | DRG 871 ==
LOC: ER 23:07 → ICUW 07-31 01:34 → PCU 07-31 01:34 → MEDS 08-04 15:36
PROVIDERS: Emergency Medicine; Family Medicine; Hospitalist; Student in an Organized Health Care Education/Training Program; ADMIT Student in an Organized Health Care Education/Training Program
PROC: 5A09357 Assistance with Respiratory Ventilation, Less than 24 Consecutive Hours, Continuous Positive Airway Pressure (ICD-10-PCS; principal; 2022-07-31)
PROC: 0T9B70Z Drainage of Bladder with Drainage Device, Via Natural or Artificial Opening (ICD-10-PCS; 2022-07-31)
PROC: 3E03329 Introduction of Other Anti-infective into Peripheral Vein, Percutaneous Approach (ICD-10-PCS; 2022-07-31)
PROC: 4A033R1 Measurement of Arterial Saturation, Peripheral, Percutaneous Approach (ICD-10-PCS; 2022-07-31)
PROC: 5A0945A Assistance with Respiratory Ventilation, 24-96 Consecutive Hours, High Flow/Velocity Cannula (ICD-10-PCS; 2022-07-31)
DX: A41.50 Gram-negative sepsis, unspecified (principal); G92.8 Other toxic encephalopathy; J96.01 Acute respiratory failure with hypoxia; J96.22 Acute and chronic respiratory failure with hypercapnia; J18.9 Pneumonia, unspecified organism; I50.31 Acute diastolic (congestive) heart failure; N39.0 Urinary tract infection, site not specified; J44.0 Chronic obstructive pulmonary disease with (acute) lower respiratory infection; E87.20 Acidosis, unspecified; J44.1 Chronic obstructive pulmonary disease with (acute) exacerbation; Z68.44 Body mass index [BMI] 60.0-69.9, adult; Z66 Do not resuscitate; F25.9 Schizoaffective disorder, unspecified; G47.33 Obstructive sleep apnea (adult) (pediatric); R65.20 Severe sepsis without septic shock; I48.91 Unspecified atrial fibrillation; M54.9 Dorsalgia, unspecified; G89.29 Other chronic pain; E78.5 Hyperlipidemia, unspecified; I11.0 Hypertensive heart disease with heart failure; E66.01 Morbid (severe) obesity due to excess calories; F03.A0 Unspecified dementia, mild, without behavioral disturbance, psychotic disturbance, mood disturbance, and anxiety; E11.65 Type 2 diabetes mellitus with hyperglycemia; I27.20 Pulmonary hypertension, unspecified; D50.9 Iron deficiency anemia, unspecified; G40.909 Epilepsy, unspecified, not intractable, without status epilepticus; G20 Parkinson's disease; Q98.4 Klinefelter syndrome, unspecified; I08.0 Rheumatic disorders of both mitral and aortic valves; Z86.16 Personal history of COVID-19; Z99.81 Dependence on supplemental oxygen; Z79.01 Long term (current) use of anticoagulants; Z86.711 Personal history of pulmonary embolism; Z79.4 Long term (current) use of insulin; Z88.2 Allergy status to sulfonamides; Z91.048 Other nonmedicinal substance allergy status; Z79.899 Other long term (current) drug therapy; Z79.84 Long term (current) use of oral hypoglycemic drugs; Z79.82 Long term (current) use of aspirin; Z87.891 Personal history of nicotine dependence
CPT/HCPCS: 36415; 36600; 51702; 71045; 80048; 80053; 81001; 82803; 82947; 83605; 83735; 83880; 85025; 87040; 87077; 87086; 87186; 92610; 93005; 93010; 94640; 94660; 94664; 94762; 96365-59; 96367-59; 97110; 97162; 97166; 97530; 97535; 99285-25; A9270; C8929; J0456; J0696; J1940; J2185; J7030; J7050; J7120; Q9957

== ENCOUNTER → 2022-08-11 | Outpatient (CLI) | payer OTHER ==
[~2022-08-11] MED LIST changes: +ALBU2.5V5 INH; +ALMACONE SUSPE355 ML PO; +B-12 COMPL1000 MCG/2 IM; +BISA10S PR; +CALAMINE LOTIO177 ML TOP; +DULCOLAX400 MG/5 M PO; +ENSURE PLUS HI237 ML PO; +LACT PO; +METAMUCIL POWD575 GM PO; +MIRALAX1714 PO; +NICOTINE LOZENGE2 MG MM; +NYAMYC1513 TOP; +PROC5 PO; +TORSE20
[2022-08-11 15:35] LABS: Bun/Creatinine Ratio 37.3 (12.0-20.0); Calcium, Blood 9.6 mg/dL (8.5-10.1); Creatinine, Blood 0.64 mg/dL (0.60-1.20); Potassium, Blood 3.8 mmol/L (3.5-5.5)
== END | disposition home or self-care (01) ==
LOC: LAB SHORT 12:00 → LAB 12:00
PROVIDERS: Registered Nurse
DX: F20.9 Schizophrenia, unspecified (principal); E11.9 Type 2 diabetes mellitus without complications; F41.9 Anxiety disorder, unspecified; F03.90 Unspecified dementia, unspecified severity, without behavioral disturbance, psychotic disturbance, mood disturbance, and anxiety; E78.5 Hyperlipidemia, unspecified; J44.9 Chronic obstructive pulmonary disease, unspecified; I11.0 Hypertensive heart disease with heart failure; I50.9 Heart failure, unspecified
CPT/HCPCS: 80048; 83036

== ENCOUNTER → 2022-09-09 | Outpatient (CLI) | payer OTHER ==
[2022-09-09 12:44] LABS: Valproic Acid 92.1 ug/mL (50.0-100.0)
== END | disposition home or self-care (01) ==
LOC: LAB SHORT 09:35 → LAB 09:35
PROVIDERS: Psychiatry & Neurology Psychiatry
DX: Z51.81 Encounter for therapeutic drug level monitoring (principal); F25.0 Schizoaffective disorder, bipolar type; Z79.899 Other long term (current) drug therapy
CPT/HCPCS: 80164

== ENCOUNTER → 2022-12-07 | Outpatient (CLI) | payer OTHER | END | disposition home or self-care (01) | LOC: LAB 13:36 → LAB SHORT 13:36 | DX: F25.0 Schizoaffective disorder, bipolar type (principal); E08.9 Diabetes mellitus due to underlying condition without complications; G47.00 Insomnia, unspecified; F03.94 Unspecified dementia, unspecified severity, with anxiety; J44.9 Chronic obstructive pulmonary disease, unspecified; I11.0 Hypertensive heart disease with heart failure; I50.9 Heart failure, unspecified | CPT/HCPCS: 82043 ==

== ENCOUNTER → 2022-12-08 | Outpatient (CLI) | payer OTHER ==
[2022-12-08 14:26] LABS: Valproic Acid 73.9 ug/mL (50.0-100.0)
== END | disposition home or self-care (01) ==
LOC: LAB 11:30 → LAB SHORT 11:30
PROVIDERS: Registered Nurse
DX: F25.0 Schizoaffective disorder, bipolar type (principal); E08.00 Diabetes mellitus due to underlying condition with hyperosmolarity without nonketotic hyperglycemic-hyperosmolar coma (NKHHC)
CPT/HCPCS: 80164; 83036

== ENCOUNTER → 2023-03-17 | Outpatient (CLI) | payer OTHER | LOC: LAB 15:51 → LAB SHORT 15:51 | DX: F25.0 Schizoaffective disorder, bipolar type (principal) | CPT/HCPCS: 83036 ==

== ENCOUNTER → 2023-03-23 | Outpatient (CLI) | payer OTHER ==
[2023-03-24 10:54] LABS: Source, Urine Clean Catch
[2023-03-24 11:40] LABS: Appearance, Urine Clear (Clear); Bilirubin, Urine Neg (Neg); Blood, Urine Neg (Neg); Glucose Qualitative, Urine Neg (Neg); Ketones, Urine Neg (Neg); Leukocyte Esterase, Urine Neg (Neg); Nitrite, Urine Neg (Neg); Protein, Urine Neg (Neg); Urobilinogen, Urine NORM (Normal); pH, Urine 6.5 (5.0-8.0)
[2023-03-24 11:57] LABS: Color, Urine Pale Yellow (P-Yellow)
== END | disposition home or self-care (01) ==
LOC: LAB SHORT 18:50 → LAB 18:50
PROVIDERS: Registered Nurse
DX: N39.0 Urinary tract infection, site not specified (principal)
CPT/HCPCS: 81003

== ENCOUNTER 2023-04-16 10:06 | Emergency (ER) | payer OTHER ==
[~2023-04-16] VITALS: Ht 167.6 cm; Wt 150.1 kg
[2023-04-16 12:00] VITALS: BP 108/65
[2023-04-16 12:09] LABS: Influenza A, PCR NEGATIVE (NEGATIVE); Influenza B, PCR NEGATIVE (NEGATIVE); Resp Syncytial Virus, PCR NEGATIVE (NEGATIVE); SARS-Cov-2 (COVID-19) PCR, MMC NEGATIVE (NEGATIVE)
[2023-04-17] MEDS ORDERED: NICOTINE LOZENGE2 MG MM (07:33)
== END 2023-04-16 13:20 | disposition home or self-care (01) ==
LOC: ER 10:06
PROVIDERS: Emergency Medicine
DX: J18.9 Pneumonia, unspecified organism (principal); Z20.822 Contact with and (suspected) exposure to COVID-19; E11.9 Type 2 diabetes mellitus without complications; F25.9 Schizoaffective disorder, unspecified; G47.30 Sleep apnea, unspecified; F03.90 Unspecified dementia, unspecified severity, without behavioral disturbance, psychotic disturbance, mood disturbance, and anxiety; I50.9 Heart failure, unspecified; Z87.01 Personal history of pneumonia (recurrent); Z86.16 Personal history of COVID-19; Z87.891 Personal history of nicotine dependence; Z79.84 Long term (current) use of oral hypoglycemic drugs; Z79.899 Other long term (current) drug therapy; Z88.2 Allergy status to sulfonamides; Z88.8 Allergy status to other drugs, medicaments and biological substances
CPT/HCPCS: 0241U; 71046; 99285-25; A9270

== ENCOUNTER 2023-04-17 06:09 | Emergency (ER) | payer OTHER ==
[~2023-04-17] VITALS: Ht 172.7 cm; Wt 150.1 kg
[2023-04-17 06:29] LABS: BASOPHILS ABSOLUTE AUTO 0.03 K/mm3 (0.00-0.23); BASOPHILS PERCENT AUTO 0 % (0-2); EOSINOPHILS ABSOLUTE AUTO 0.04 K/mm3 (0.00-0.68); EOSINOPHILS PERCENT AUTO 1 % (0-6); IMMATURE GRAN ABSOLUTE AUTO 0.04 K/mm3 (0.00-0.10); IMMATURE GRAN PERCENT AUTO 1 % (0-1); LYMPHOCYTES ABSOLUTE AUTO 1.56 K/mm3 (0.84-5.20); LYMPHOCYTES PERCENT AUTO 18 % (21-46); MONOCYTES ABSOLUTE AUTO 1.12 K/mm3 (0.16-1.47); MONOCYTES PERCENT AUTO 13 % (4-13); Mean Corpuscular HGB 27.8 pg (26.0-34.0); Mean Corpuscular HGB Conc 31.6 g/dL (31.5-36.5); Mean Corpuscular Volume 88 fL (80-100); Mean Platelet Volume 8.5 fL (9.1-12.4); NEUTROPHILS ABSOLUTE AUTO 5.94 K/mm3 (1.96-9.15); NEUTROPHILS PERCENT AUTO 68 % (41-73); Platelet Count 277 K/mm3 (150-400); RDW Coefficient Variation 15.7 % (11.7-14.2); RDW Standard Deviation 51.1 fL (35.1-46.3); Red Blood Cell Count 4.31 M/mm3 (4.30-5.90); White Blood Cell Count 8.73 K/mm3 (4.00-11.30)
[2023-04-17 07:02] LABS: Albumin, Blood 2.8 g/dL (3.4-5.0); Albumin/Globulin Ratio 0.6 (0.8-1.8); Bilirubin, Total 0.3 mg/dL (0.1-1.0); Bun/Creatinine Ratio 25.5 (12.0-20.0); Calcium, Blood 9.4 mg/dL (8.5-10.1); Creatinine, Blood 0.71 mg/dL (0.60-1.20); Globulin, Blood 4.7 g/dL (2.2-4.0); Potassium, Blood 4.1 mmol/L (3.5-5.5); Total Protein, Blood 7.5 g/dL (6.4-8.2)
[2023-04-17] MEDS ORDERED: NICOTINE LOZENGE2 MG MM (07:33)
[2023-04-17 11:30] VITALS: BP 127/96
== END 2023-04-17 12:18 | disposition home or self-care (01) ==
LOC: ER 06:09
PROVIDERS: Emergency Medicine
DX: J18.9 Pneumonia, unspecified organism (principal); Z99.81 Dependence on supplemental oxygen; I50.9 Heart failure, unspecified; E11.9 Type 2 diabetes mellitus without complications; G47.30 Sleep apnea, unspecified; F25.9 Schizoaffective disorder, unspecified; F03.90 Unspecified dementia, unspecified severity, without behavioral disturbance, psychotic disturbance, mood disturbance, and anxiety; Z86.711 Personal history of pulmonary embolism; Z86.16 Personal history of COVID-19; Z79.84 Long term (current) use of oral hypoglycemic drugs; Z79.899 Other long term (current) drug therapy; Z88.2 Allergy status to sulfonamides; Z88.8 Allergy status to other drugs, medicaments and biological substances; Z79.82 Long term (current) use of aspirin
CPT/HCPCS: 36415; 80053; 82947; 83605; 83880; 84484; 85025; 93005; 93010; 96360; 99284-25; A9270; J7030

== ENCOUNTER → 2023-05-31 | Outpatient (CLI) | payer OTHER ==
[2023-05-31 19:13] LABS: Source, Urine Clean Catch
[2023-05-31 19:58] LABS: Appearance, Urine Clear (Clear); Bilirubin, Urine Neg (Neg); Blood, Urine Neg (Neg); Color, Urine Yellow (P-Yellow); Glucose Qualitative, Urine Neg (Neg); Ketones, Urine Neg (Neg); Leukocyte Esterase, Urine Neg (Neg); Nitrite, Urine Neg (Neg); Protein, Urine Neg (Neg); Specific Gravity, Urine 1.005 (1.003-1.022); Urobilinogen, Urine NORM (Normal); pH, Urine 6.5 (5.0-8.0)
== END | disposition home or self-care (01) ==
LOC: LAB SHORT 19:11
PROVIDERS: Registered Nurse
DX: N39.0 Urinary tract infection, site not specified (principal)
CPT/HCPCS: 81003

== ENCOUNTER → 2023-08-26 | Outpatient (CLI) | payer OTHER | END | disposition home or self-care (01) | LOC: LAB SHORT 13:05 → LAB 13:05 | DX: F22 Delusional disorders (principal); E11.9 Type 2 diabetes mellitus without complications ==